=== PATIENT | male | born 1980 | race Caucasian/White ===

== ENCOUNTER 2019-07-15 00:52 | Emergency (ER) | payer SELFPAY ==
--- NOTE | 2019-07-15 01:00 | ED_ITS ---
HPI - Abdominal Pain General: Chief Complaint: Abdominal Pain Stated Complaint: abd pain Time Seen by Provider: 07/15/19 01:00 History of Present Illness: HPI narrative: Mr. Pascal is a nice 39-year-old male who comes in complaining of right upper quadrant abdominal pain. The pain is been present for 2 days. The first day was intermittent the second day it is been constant. He has had associated nausea but no vomiting. He denies any constipation or diarrhea. Denies any fevers or chills. He denies any urinary frequency urgency or dysuria. Eating or drinking seems to make the pain worse and only rest makes it subside slowly. Patient denies having anything in the past and is not tried anything at home for this pain. Associated Symptoms: Reports nausea; Denies chills, coffee ground emesis, constipation, GI cramping, diarrhea, dysuria, fever(s), hematochezia, hematuria, hematemesis, melena, syncope and vomiting Review of Systems General: Reports: other (negative unless marked) Const: Denies: fever, chills, body aches, fatigue, malaise or diaphoresis Eyes: Denies: change in vision or blurry vision ENMT: Denies: throat pain, painful swallowing, hoarseness, ear pain, ear discharge, Change in hearing or nasal discharge Card: Denies: chest pain, palpitations, irregular heart rhythm, syncope, pre- syncope, shortness of breath on exertion or shortness of breath when lying down Resp: Denies: shortness of breath, productive cough, non-productive cough, wheezing, coughing up blood or chest congestion GI: Reports: abdominal pain and nausea; Denies: vomiting, vomiting blood, coffee grounds in vomit, diarrhea, constipation, cramping, blood in stool or black tarry stool : Denies: flank pain, difficulty urinating, painful urination, urinary frequency, urinary urgency, decreased urine ouput, urinary incontinence or blood in urine Musc: Denies: neck pain, back pain, extremity pain, extremity swelling, joint pain, joint swelling, joint warmth or joint stiffness Skin/Breast: Denies: rash, skin tenderness or yellow skin Neuro: Denies: headache, numbness in extremities, weakness in extremities, changes in sensation, lack of coordination, difficulty walking, dizziness, vertigo or confusion Endo: Denies: excessive thirst, tired all the time, cold intolerance, excessive sweating, flushing or hot flashes Justus/Lymph: Denies: easy bruising, easy bleeding, petechiae or enlarged lymph nodes All/Imm: Denies: hives, throat swelling, tongue swelling, facial swelling or acute wheezing PFSH ED PFSH: Medical History No pertinent past medical history Surgical History H/O eye surgery Social History Smoking and tobacco status: current every day smoker Course Vital Signs: Vital signs: Vital Signs Temperature 96.8 F L 07/15/19 01:04 Pulse Rate 90 07/15/19 01:04 Respiratory Rate 20 H 07/15/19 01:04 Blood Pressure 138/96 07/15/19 01:04 Pulse Oximetry 96 07/15/19 01:04 MDM - Abdominal Pain MDM Narrative: Medical decision making narrative: Raymon is a nice 39-year-old male comes in for right upper quadrant pain for 2 days. First day was intermittent today is been almost constant. His gallbladder shows it is contracted on ultrasound but no evidence of gallstones and a normal biliary tree. CT scan shows a normal appendix with no mention of abnormalities of the gallbladder or liver. It does incidentally show a left herniated disc. I reviewed the case in full with Dr. Echavarria and he states the patient can follow-up with him and have an outpatient HIDA scan ordered to test for gallblad ana m dysfunction. I see no sign of acute cholecystitis as the patient is afebrile, a normal liver profile and only a minimally elevated white count with no left shift. The patient denies any chest pain or shortness of breath. In regards to his disc herniation he is completely asymptomatic and I did discuss this in full with the radiologist who says that he sees calcifications present so he thinks this is been there for quite some time. Patient agrees to return here in 12 hours if he still having pain or sooner if worse as he understands developing appendicitis is still could be a cause but at this time he is feeling much better and is ready to go home. On repeat exam there is no sign of peritonitis and he is greatly improved. Lab Data: Attestation: I reviewed the patient's lab results. Labs: Lab Results 07/15/19 07/15/19 07/15/19 Range/Units 01:15 01:15 02:19 WBC 10.8 H (4.0-10.0) 10^3/ uL RBC 5.03 (4.1-5.3) 10^6/u L Hgb 15.1 (11.7-16.6) g/dL Hct 47.0 (42.0-52.0) % MCV 93.4 (80-94) fL MCH 30.0 (28.0-34.0) pg MCHC 32.1 (30.0-36.0) g/dL RDW 13.5 (12.1-15.1) % Plt Count 315 (130-400) 10^3/c mm MPV 9.9 (7.4-10.4) fL Neut % (Auto) 60.9 % Lymph % (Auto) 25.1 % [place] % (Auto) 9.4 % Eos % (Auto) 3.1 % Baso % (Auto) 1.2 % Neut # (Auto) 6.6 (1.8-7.7) 10^3/u L Lymph # (Auto) 2.7 (0.8-4.8) 10^3/u L [place] # (Auto) 1.0 H (0.2-0.9) 10^3/u L Eos # (Auto) 0.3 (0.0-0.8) 10^3/u L Baso # (Auto) 0.1 (0.0-0.1) 10^3/u L Nucleated RBC % (a uto) 0 % Nucleated RBCs # 0.0 /100WBC Sodium 138 (136-145) mmol/L Potassium 4.0 (3.5-5.1) mmol/L Chloride 102 (98-107) mmol/L Carbon Dioxide 26 (22-29) mmol/L Anion Gap 14.0 (5-19) BUN 11 (6-20) mg/dL Creatinine 0.7 (0.7-1.2) mg/dL GFR Calculation 126.2 (90-130) mL/min Glucose 148 H (65-115) mg/dL Calculated Osmolal ity 285 (285-295) mOsm/k g Calcium 8.8 (8.5-10.5) mg/dL Total Bilirubin 0.2 (0.15-1.2) mg/dL AST 26 (0-40) U/L ALT 39 (0-41) U/L Alkaline Phosphata se 91 (40-130) IU/L Total Protein 7.1 (6.6-8.7) g/dL Albumin 4.1 (3.5-5.2) g/dL Globulin 3.0 (1.3-4.6) g/dL Lipase 20 (13-60) U/L Urine Color Yellow (Yellow) Urine Appearance Clear (CLEAR) Urine pH 5 (5-7) Ur Specific Gravit y 1.025 (1.005-1.030) Urine Protein Neg (Negative) Urine Glucose (UA) Norm (Normal) Urine Ketones Negative (Negative) Urine Blood Neg (Negative) Urine Nitrate Negative (Negative) Urine Bilirubin Neg (NEGATIVE) Urine Urobilinogen Norm (Negative) mg/dL Ur Leukocyte Nicolasa ase Negative (Negative) Urine RBC Rare (0-2) /hpf Urine WBC 0-4 H (0-5) /hpf Ur Squamous Epith Cells Rare (0-5) Urine Bacteria Trace (NONE) Imaging Data ^: US: Radiologist's impression: Ultrasound abdomen, Tech interpretation -gallbladder contracted. Wall at 0.5 cm. Fatty liver. All other findings unremarkable. CT Abd/Pel: Radiologist's impression: [place] [address] CT Scan Report Signed Patient: Raymon Pascal Unit #: [id number] : 1980 Age/Sex: 39 / M ADM Date: 07/15/19 Loc: ER Room/Bed: Attending Dr: Ordering Provider/Ordering MD: Ruba Hilton DO Date of Service: 07/15/19 Procedure(s): CT abdomen pelvis w con* [id number] Accession Number(s): [id number] Report Number: [id number] PROCEDURE INFORMATION: Exam: CT Abdomen And Pelvis With Contrast Exam date and time: 07/15/2019 2:30 AM Age: 39 years old Clinical indication: Abdominal pain; Generalized TECHNIQUE: Imaging protocol: Computed tomography of the abdomen and pelvis with intravenous contrast. Radiation optimization: All CT scans at this facility use at least one of these dose optimization techniques: automated exposure control; mA and/or kV adjustment per patient size (includes targeted exams where dose is matched to clinical indication); or iterative reconstruction. Contrast material: OMNI 300; Contrast volume: 95 ml; Contrast route: 20G; COMPARISON: No relevant prior studies available. RADIATION DOSE METRICS: Total DLP: 2002.91 mGy-cm FINDINGS: Mild patchy atelectasis at bilateral lung bases. The liver, gallbladder, spleen, pancreas, adrenal glands, and kidneys are unremarkable. A normal appearing appendix is seen in the right lower quadrant. No evidence of bowel obstruction. Diverticulosis of the sigmoid colon without evidence of diverticulitis. No free intraperitoneal air or fluid is seen. The bladder is unremarkable. Enlarged left inguinal lymph node. The abdominal aorta is non-aneurysmal. Large left paracentral posterior disk protrusion at L4-L5 with associated moderate spinal canal stenosis. CT/CT abdomen pelvis w con* [id number] IMPRESSION: 1. Large left paracentral posterior disk protrusion at L4-L5 with associated moderate spinal canal stenosis. Radiation Dose CTDIVOL = (mGy): DLP = 2002.91 (mGy-cm) Dictated By: Kelvin Ruiz MD Signed By: Kelvin Ruiz MD Signed Date/Time: 07/15/19322 DD/ 0 Discharge Plan Discharge Patient Disposition: Home, Self-Care Clinical Impression: Herniated intervertebral disc of lumbar spine Abdominal pain Qualifiers: Abdominal location: right upper quadrant Qualified Code(s): R10.11 - Right upper quadrant pain Condition: Stable Prescriptions: New Zofran 4 mg tablet 4 mg PO Q6H PRN (Reason: nausea and vomiting) Qty: 20 RF: 0 Discharge Orders: Discharge Order (Routine); Ordered 07/15/19 Ordered By: Ruba Hilton Referrals: Jarrell Echavarria MD [Physician] - 1-3 days Milo Echevarria MD [Physician] - 1-3 days Iva Thompson FNP [Primary Care Provider] - 1-3 days Discharge Diet: Advance as tolerated and Clear Liquid Discharge Activity: Increase activity as tolerated Patient Instructions: Abdominal Pain (ED) Activity Restrictions/Additional Instructions: Please return to the ER immediately for any of the signs or symptoms listed on your discharge instruction sheets, worsening/changing of your symptoms, you are not getting better as quickly as expected, or for ANY other cause or concerns. Return to the ER for return of your pain, fever, vomiting, you develop pain in your back or pain going down your legs, loss of bowel or bladder control, numbness in your groin, or for any other cause for concern. Be certain to follow-up with Dr. Echavarria for possible outpatient work-up of your gallbladder. If for any reason you have abdominal pain that lasts for more than 12 hours return here for a recheck to rule out appendicitis. Follow-up with your doctor and with Dr. Echevarria for further evaluation of your back. Stand Alone Forms: Work/School Release Coding Level of Care Code ED Supervisor [employer] for [employer]
[2019-07-15 01:04] VITALS: BP 138/96; PULSE 90; RESP 20; TEMP 36; O2SAT 96; BMI 38.7
--- NOTE | 2019-07-15 01:09 | US_ITS ---
WS: [id number] ABDOMINAL ULTRASOUND REASON FOR EXAM: Abdominal Pain TECHNIQUE: Grayscale and Doppler ultrasound examination of the abdomen. FINDINGS: Pancreas: Within normal limits. Abdominal aorta and IVC: Within normal limits. Liver: Liver measures 13.6 cm in length. Fatty infiltration. Hepatopedal circulation and portal syste m. Gallbladder: Gallbladder wall thickness measures 0.5 cm. The gallbladder contracted thickened wall. Left kidney: Left kidney measures 11.1 cm x 6.0 cm x 6.1 cm. No hydronephrosis or stones. Right kidney: Right kidney measures 13.5 cm x 7.1 cm x 6.1 cm. No hydronephrosis or stones. Spleen: Spleen measures 10.2 cm US/US abdomen complete* [id number] IMPRESSION: Contracted thickened wall gallbladder Fatty infiltration of the liver.
[2019-07-15] MEDS: sodium chloride 0.9% 1,000 ML 999 ML IV (01:12)
[2019-07-15] MEDS: ondansetron 2 mg/ML SDV 2 mL 4 MG IVP (01:15)
[2019-07-15] MEDS: morphine 4 mg/mL SDV 1 mL IVP ×2 (01:15→03:23)
[2019-07-15 01:19] LABS: Basophils # 0.1 10^3/uL (0.0-0.1); Basophils % 1.2 %; Eosinophils # 0.3 10^3/uL (0.0-0.8); Eosinophils % 3.1 %; Hemoglobin 15.1 g/dL (11.7-16.6); Lymphocytes # 2.7 10^3/uL (0.8-4.8); Lymphocytes % 25.1 %; Mean Corpuscular HGB Conc 32.1 g/dL (30.0-36.0); Mean Corpuscular Volume 93.4 fL (80-94); Mean Platelet Volume 9.9 fL (7.4-10.4); Monocytes % 9.4 %; Neutrophils # 6.6 10^3/uL (1.8-7.7); Neutrophils % 60.9 %; Nucleated Red Blood Cells % 0 %; Platelet Count 315 10^3/cmm (130-400); Red Blood Count 5.03 10^6/uL (4.1-5.3); Red Cell Distribution Width 13.5 % (12.1-15.1); White Blood Count 10.8 10^3/uL (4.0-10.0)
[2019-07-15 01:34] LABS: Alanine Aminotransferase 39 U/L (0-41); Albumin Level 4.1 g/dL (3.5-5.2); Alkaline Phosphatase 91 IU/L (40-130); Aspartate Amino Transferase 26 U/L (0-40); Blood Urea Nitrogen 11 mg/dL (6-20); Calcium 8.8 mg/dL (8.5-10.5); Carbon Dioxide 26 mmol/L (22-29); Chloride 102 mmol/L (98-107); Glomerular Filtration Rate 126.2 mL/min (90-130); Glucose 148 mg/dL (65-115); Lipase 20 U/L (13-60); Osmolality Calculated 285 mOsm/kg (285-295); Sodium 138 mmol/L (136-145); Total Bilirubin 0.2 mg/dL (0.15-1.2); Total Protein 7.1 g/dL (6.6-8.7)
--- NOTE | 2019-07-15 02:21 | CTR_ITS ---
PROCEDURE INFORMATION: Exam: CT Abdomen And Pelvis With Contrast Exam date and time: 07/15/2019 2:30 AM Age: 39 years old Clinical indication: Abdominal pain; Generalized TECHNIQUE: Imaging protocol: Computed tomography of the abdomen and pelvis with intravenous contrast. Radiation optimization: All CT scans at this facility use at least one of these dose optimization techniques: automated exposure control; mA and/or kV adjustment per patient size (includes targeted exams where dose is matched to clinical indication); or iterative reconstruction. Contrast material: OMNI 300; Contrast volume: 95 ml; Contrast route: 20G; COMPARISON: No relevant prior studies available. RADIATION DOSE METRICS: Total DLP: 2002.91 mGy-cm FINDINGS: Mild patchy atelectasis at bilateral lung bases. The liver, gallbladder, spleen, pancreas, adrenal glands, and kidneys are unremarkable. A normal appearing appendix is seen in the right lower quadrant. No evidence of bowel obstruction. Diverticulosis of the sigmoid colon without evidence of diverticulitis. No free intraperitoneal air or fluid is seen. The bladder is unremarkable. Enlarged left inguinal lymph node. The abdominal aorta is non-aneurysmal. Large left paracentral posterior disk protrusion at L4-L5 with associated moderate spinal canal stenosis. CT/CT abdomen pelvis w con* [id number] IMPRESSION: 1. Large left paracentral posterior disk protrusion at L4-L5 with associated moderate spinal canal stenosis. Radiation Dose CTDIVOL = (mGy): DLP = 2002.91 (mGy-cm)
[2019-07-15] MEDS: iohexol 300 mg/mL 100 mL Btl IV (02:42)
[2019-07-15 03:17] LABS: Specific Gravity, Urine 1.025 (1.005-1.030); Urine Appearance Clear (CLEAR); Urine Color Yellow (Yellow); pH Urine 5 (5-7)
[2019-07-15 03:18] LABS: Bacteria Urine TRACE; Bilirubin Urine Neg (NEGATIVE); Blood Urine Neg (Negative); Glucose Urine UA Norm (Normal); Ketones Urine Negative (Negative); Leukocyte Esterase Urine Negative (Negative); Nitrate Urine Negative (Negative); Protein Urine Neg (Negative); RBC Urine RARE /hpf (0-2); Squamous Epithelial Cell Urine RARE (0-5); Urobilinogen Urine Norm (Negative); WBC Urine 0-4 /hpf (0-5)
[2019-07-15] MEDS: sodium chloride 0.9% 1,000 ML 100 ML IV (03:24)
--- NOTE | 2019-07-16 09:48 | DCPLANNER ---
entry level assistant manager had message to schedule a follow up appointment for patient with Dr. Echevarria and Dr. Echavarria. entry level assistant manager called [facility], spoke with Johny. entry level assistant manager gave clinic patients information to clinic, was told that patients information would be printed and reviewed. Clinic will call patient with appointment information for both appointments.
--- NOTE | 2019-07-17 14:53 | DCPLANNER ---
Patient has a follow up appointment scheduled for Sunday, July 28, [address] at 8:[address] Echevarria. Clinic will call patient with appointment information.
== END 2019-07-15 04:11 | disposition home or self-care (01) ==
PROVIDERS: Emergency Provider Emergency Medicine; PCP Nurse Practitioner
DX: R10.11 Right upper quadrant pain (principal); M51.26 Other intervertebral disc displacement, lumbar region; F17.210 Nicotine dependence, cigarettes, uncomplicated
CPT/HCPCS: 12345; 74177; 76700; 80053; 81001; 83690; 85025; 96361; 96374; 96375; 96376; 99282; 99284; A9270; J2270; J2405; J7030; Q9967

== ENCOUNTER 2019-07-25 16:49 | Emergency (ER) | payer SELFPAY ==
[2019-07-25 16:52] VITALS: BP 133/75; PULSE 98; RESP 17; TEMP 36.7; O2SAT 96; BMI 38.8
[2019-07-25 17:01] VITALS: BP 126/70; PULSE 95; RESP 20; O2SAT 98
--- NOTE | 2019-07-25 17:03 | XRR_ITS ---
PROCEDURE INFORMATION: Exam: XR Chest, 1 View Exam date and time: 07/25/2019 5:04 PM Age: 39 years old Clinical indication: Cough and dyspnea; Patient HX: Syncopal episode; Additional info: Dyspnea/cough TECHNIQUE: Imaging protocol: XR of the chest Views: 1 view. COMPARISON: No relevant prior studies available. FINDINGS: Lungs: Unremarkable. No consolidation. Pleural space: Unremarkable. No pleural effusion. No pneumothorax. Heart/Mediastinum: Unremarkable. No cardiomegaly. Bones/joints: Unremarkable. XR/XR chest 1V portable [id number] IMPRESSION: No acute findings.
--- NOTE | 2019-07-25 17:03 | ECG_ITS ---
Measurements Intervals [place] Rate: 88 P: 54 [place]: 164 QRS: 52 QRSD: 89 T: 57 QT: 335 QTc: 406 SINUS RHYTHM NONSPECIFIC T-WAVE ABNORMALITY No previous ECG available for comparison Electronically Signed On 07-26-2019 9:36:28 CDT by Brigitte Grissom M.D. [email or web address]
--- NOTE | 2019-07-25 17:11 | ED_ITS ---
Documented by User: Brandt Garsia DO 07/29/19 06:46 HPI - Syncope General: Chief Complaint: Syncope Stated Complaint: SYNCOPE Time Seen by Provider: 07/25/19 16:57 History of Present Illness: HPI narrative: 39-year-old male comes in complaining of a syncopal episode he was at home stood up and began walking and passed out he was only out for a very brief period of time it was witnessed by his girlfriend there is no reported seizure-like activity he denies striking his head or having any chest pain denies any shortness of breath fever sweats or chills or other recent illness. He has not had episodes like this in the past he has not been taking any prescription medications and no recent use of zxod-kck-murcezl medications. There is no loss of bowel or bladder control and did not bite his tongue he does not have a headache does not have any extremity pain cannot really identify having hit or injured anything when he fell. MD complaint: loss of consciousness and collapsed Onset (ago): minute(s) -: second(s) Prodromal symptoms: lightheaded Witnessed: Yes - by Bystander (Girlfriend) Context: standing up Injuries sustained associated with event: none Associated symptoms: Reports no associated symptoms; Deny abdominal pain, chest pain, fever(s) or nausea Treatments prior to arrival: none Review of Systems Const: Denies: fever(s), chills, body aches, change in appetite, fatigue or malaise ENMT: Denies: throat pain, ear or mastoid pain, nasal discharge or nasal congestion Card: Denies: chest pain, edema, dyspnea on exertion or orthopnea Resp: Denies: dyspnea, productive cough or non-productive cough GI: Denies: abdominal pain, nausea, vomiting, hematemesis, coffee ground emesis, diarrhea, constipation, bloating, hematochezia or melena : Denies: flank pain, dysuria, urinary frequency or urinary urgency Skin/Breast: Denies: rash or pruritus [facility] ED PFSH: Medical History (Updated 07/25/19 @ 19:04 by Ruba Hilton) No pertinent past medical history Surgical History H/O eye surgery Social History Smoking and tobacco status: current every day smoker Physical Exam Const: COMMON NORMALS: no acute distress GENERAL APPEARANCE: cooperative and comfortable ORIENTATION/CONSCIOUSNESS: Yes awake, Yes oriented to person, Yes oriented to place and Yes oriented to time HENMT: COMMON NORMALS: normocephalic, atraumatic, hearing grossly normal bilaterally, external ears normal, EAC's normal, TM's normal bilaterally, Normal nasal mucous membranes and turbinates present, moist oral mucous membranes and oropharynx normal HEAD & SCALP: normocephalic and atraumatic NOSE: Normal nasal mucous membranes and turbinates present EXTERNAL EAR: Yes external ears normal EXTERNAL AUDITORY CANAL: EAC's normal TYMPANIC MEMBRANE: TM's normal bilaterally Eye: COMMON NORMALS: Equal, round and reactive pupils present, EOMs intact bilaterally, conjunctivae normal and no scleral icterus CONJUNCTIVA: Yes conjunctivae normal PUPIL: Yes Equal, round and reactive pupils present Neck/C-Spine: COMMON NORMALS: full ROM, no lymphadenopathy, supple and no JVD Lymph: LYMPHATIC: no lymphadenopathy noted and no lymphedema noted Resp: COMMON NORMALS: normal respiratory effort, No retractions, No use of accessory muscles and clear to auscultation bilaterally AUSCULTATION: clear to auscultation bilaterally Cardio: COMMON NORMALS: no JVD, regular rate, regular rhythm and No murmurs present (Cardio) RATE: regular rate RHYTHM: regular rhythm GI: COMMON NORMALS: Soft to palpation and No hepatosplenomegaly present AUSCULTATION: Yes normoactive bowel sounds PALPATION: Yes Soft to palpation, No Tenderness to palpation present (GI), No Guarding due to palpation present (GI) and Yes No hepatosplenomegaly present Extremity: COMMON NORMALS: normal to inspection, capillary refill normal, no clubbing, cyanosis or edema, no calf tenderness and no pedal edema Neuro: SENSORIUM/ORIENTATION: Yes oriented to person, Yes oriented to place and Yes oriented to time Skin: COMMON NORMALS: no rashes or lesions noted GENERAL SKIN EXAM: no rashes or lesions noted Course Vital Signs: Vital signs: Vital Signs Temperature 98.0 F 07/25/19 16:52 Pulse Rate 78 07/25/19 19:25 Respiratory Rate 18 07/25/19 19:25 Blood Pressure 140/70 07/25/19 19:25 Pulse Oximetry 98 07/25/19 19:25 MDM - Syncope Lab Data: Labs: Lab Results 07/25/19 07/25/19 07/25/19 Range/Units 16:40 16:40 16:40 WBC 9.7 (4.0-10.0) 10^3/ uL RBC 5.22 (4.1-5.3) 10^6/u L Hgb 15.8 (11.7-16.6) g/dL Hct 48.4 (42.0-52.0) % MCV 92.7 (80-94) fL MCH 30.3 (28.0-34.0) pg MCHC 32.6 (30.0-36.0) g/dL RDW 13.4 (12.1-15.1) % Plt Count 305 (130-400) 10^3/c mm MPV 9.9 (7.4-10.4) fL Neut % (Auto) 59.3 % Lymph % (Auto) 24.6 % Rice % (Auto) 12.3 % Eos % (Auto) 2.4 % Baso % (Auto) 1.1 % Neut # (Auto) 5.7 (1.8-7.7) 10^3/u L Lymph # (Auto) 2.4 (0.8-4.8) 10^3/u L Rice # (Auto) 1.2 H (0.2-0.9) 10^3/u L Eos # (Auto) 0.2 (0.0-0.8) 10^3/u L Baso # (Auto) 0.1 (0.0-0.1) 10^3/u L Nucleated RBC % (a uto) 0 % Nucleated RBCs # 0.0 /100WBC Sodium 132 L (136-145) mmol/L Potassium 3.9 (3.5-5.1) mmol/L Chloride 95 L (98-107) mmol/L Carbon Dioxide 27 (22-29) mmol/L Anion Gap 13.9 (5-19) BUN 10 (6-20) mg/dL Creatinine 0.6 L (0.7-1.2) mg/dL GFR Calculation 150.8 H (90-130) mL/min Glucose 90 (65-115) mg/dL Calculated Osmolal ity 270 L (285-295) mOsm/k g Calcium 9.9 (8.5-10.5) mg/dL Total Bilirubin 0.3 (0.15-1.2) mg/dL AST 25 (0-40) U/L ALT 36 (0-41) U/L Alkaline Phosphata se 85 (40-130) IU/L Troponin T Baselin e 11 (0-15) ng/mL Total Protein 7.5 (6.6-8.7) g/dL Albumin 4.5 (3.5-5.2) g/dL Globulin 3.0 (1.3-4.6) g/dL Discharge Plan Discharge Patient Disposition: Home, Self-Care Clinical Impression: Syncope due to orthostatic hypotension, Vasovagal syncope Condition: Stable Prescriptions: No Action ondansetron HCl [Zofran] 4 mg tablet 4 mg PO Q6H PRN (Reason: nausea and vomiting) Qty: 20 RF: 0 Tylenol 1 - 2 tab PO PRN RF: 0 Discharge Orders: Discharge Order (Routine); Ordered 07/25/19 Ordered By: Ruba Hilton Referrals: Iva Thompson FNP [Primary Care Provider] - 1-3 days Discharge Diet: Advance as tolerated Discharge Activity: Increase activity as tolerated Patient Instructions: Syncope (ED) Activity Restrictions/Additional Instructions: Please return to the ER immediately for any of the signs or symptoms listed on your discharge instruction sheets, worsening/changing of your symptoms, you are not getting better as quickly as expected, or for ANY other cause or concerns. Be certain to follow-up with your doctor for recheck. If you develop chest pain, shortness of breath, dizziness, you pass out again or your nearly pass out again please return to the ER immediately for recheck. Discharge Date/Time: 07/25/19 19:29 Coding Level of Care Code ED [employer] Salesperson for Chg Fwd Exam Comprehensive Documented by User: Ruba Hilton 07/25/19 23:09 HPI - Syncope General: Chief Complaint: Syncope Stated Complaint: SYNCOPE Time Seen by Provider: 07/25/19 16:57 [facility] ED [facility]: Medical History (Updated 07/25/19 @ 19:04 by Ruba Hilton) No pertinent past medical history Surgical History H/O eye surgery Social History Smoking and tobacco status: current every day smoker Course ED course: [facility] -care turned over to me at change of shift from Dr. Garsia. Please see his note for his history, physical exam and medical decision-making notes. Patient states that he had gotten up and walked to the kitchen and was coughing. He was cocked pink somewhat forcefully and felt dizzy and lightheaded and then found himself on the floor. He denies any preceding chest pain, shortness of breath, leg pain or swelling, headache, and he denies any injuries from falling to the floor. He is not orthostatic here and he has been up and ambulatory without any difficulty. He denies any history of neurologic or cardiac disease. His EKG is normal and his labs are normal to this point. I am going to add at least one troponin and at this time I am awaiting his head CT. Patient is feeling better and would like to go home. On my exam the patient has a regular heart rhythm without murmur, gallop, rub, click or thrill. His lungs are clear to auscultation without wheeze rub or rhonchi, his abdomen was soft and nontender in all 4 quadrants. Musculoskeletal exam is negative with no cyanosis clubbing or edema and a negative Homans sign with no calf tenderness. Neurologically he is alert and oriented x4 with no focal deficits. Vital Signs: Vital signs: Vital Signs Temperature 98.0 F 07/25/19 16:52 Pulse Rate 78 07/25/19 19:25 Respiratory Rate 18 07/25/19 19:25 Blood Pressure 140/70 07/25/19 19:25 Pulse Oximetry 98 07/25/19 19:25 MDM - Syncope MDM Narrative: Medical decision making narrative: Discharge -the patient's history sounds like a combination of orthostatic hypotension and cough induced syncope. He has no chest pain or risk factors for DVT/PE. His cardiac work-up is negative and with no chest pain, no shortness of breath and stable vital signs here I do not think a CTA PE is necessary. Following the Gibson syncope rule along with [place] syncope risk score, the patient is a low risk for a cardiac cause for her symptoms. The patient declines any further evaluation and care and would like to be discharged. Lab Data: Attestation: I reviewed the patient's lab results. Labs: Lab Results 07/25/19 07/25/19 07/25/19 Range/Units 16:40 16:40 16:40 WBC 9.7 (4.0-10.0) 10^3/ uL RBC 5.22 (4.1-5.3) 10^6/u L Hgb 15.8 (11.7-16.6) g/dL Hct 48.4 (42.0-52.0) % MCV 92.7 (80-94) fL MCH 30.3 (28.0-34.0) pg MCHC 32.6 (30.0-36.0) g/dL RDW 13.4 (12.1-15.1) % Plt Count 305 (130-400) 10^3/c mm MPV 9.9 (7.4-10.4) fL Neut % (Auto) 59.3 % Lymph % (Auto) 24.6 % Rice % (Auto) 12.3 % Eos % (Auto) 2.4 % Baso % (Auto) 1.1 % Neut # (Auto) 5.7 (1.8-7.7) 10^3/u L Lymph # (Auto) 2.4 (0.8-4.8) 10^3/u L Rice # (Auto) 1.2 H (0.2-0.9) 10^3/u L Eos # (Auto) 0.2 (0.0-0.8) 10^3/u L Baso # (Auto) 0.1 (0.0-0.1) 10^3/u L Nucleated RBC % (a uto) 0 % Nucleated RBCs # 0.0 /100WBC Sodium 132 L (136-145) mmol/L Potassium 3.9 (3.5-5.1) mmol/L Chloride 95 L (98-107) mmol/L Carbon Dioxide 27 (22-29) mmol/L Anion Gap 13.9 (5-19) BUN 10 (6-20) mg/dL Creatinine 0.6 L (0.7-1.2) mg/dL GFR Calculation 150.8 H (90-130) mL/min Glucose 90 (65-115) mg/dL Calculated Osmolal ity 270 L (285-295) mOsm/k g Calcium 9.9 (8.5-10.5) mg/dL Total Bilirubin 0.3 (0.15-1.2) mg/dL AST 25 (0-40) U/L ALT 36 (0-41) U/L Alkaline Phosphata se 85 (40-130) IU/L Troponin T Baselin e 11 (0-15) ng/mL Total Protein 7.5 (6.6-8.7) g/dL Albumin 4.5 (3.5-5.2) g/dL Globulin 3.0 (1.3-4.6) g/dL EKG Data^: EKG 1: Attestation: I personally reviewed and interpreted this EKG as follows: EKG interpretation date: 07/25/19 EKG interpretation time: 17:16 Interpretation: Normal sinus rhythm at 88 beats a minute, normal axis, no acute ST or T wave changes. Normal intervals, no blocks. No previous for comparison. Discharge Plan Discharge Patient Disposition: Home, Self-Care Clinical Impression: Syncope due to orthostatic hypotension, Vasovagal syncope Condition: Stable Prescriptions: No Action ondansetron HCl [Zofran] 4 mg tablet 4 mg PO Q6H PRN (Reason: nausea and vomiting) Qty: 20 RF: 0 Tylenol 1 - 2 tab PO PRN RF: 0 Discharge Orders: Discharge Order (Routine); Ordered 07/25/19 Ordered By: Ruba Hilton Referrals: Iva Thompson FNP [Primary Care Provider] - 1-3 days Discharge Diet: Advance as tolerated Discharge Activity: Increase activity as tolerated Patient Instructions: Syncope (ED) Activity Restrictions/Additional Instructions: Please return to the ER immediately for any of the signs or symptoms listed on your discharge instruction sheets, worsening/changing of your symptoms, you are not getting better as quickly as expected, or for ANY other cause or concerns. Be certain to follow-up with your doctor for recheck. If you develop chest kaedn n, shortness of breath, dizziness, you pass out again or your nearly pass out again please return to the ER immediately for recheck. Discharge Date/Time: 07/25/19 19:29 Coding Level of Care Code ED [employer] Salesperson for Chg Fwd Exam Comprehensive
[2019-07-25 17:18] VITALS: BP 139/87; BP 156/102; BP 175/104; PULSE 101; PULSE 103; PULSE 95
[2019-07-25 17:20] LABS: Basophils # 0.1 10^3/uL (0.0-0.1); Basophils % 1.1 %; Eosinophils # 0.2 10^3/uL (0.0-0.8); Eosinophils % 2.4 %; Hematocrit 48.4 % (42.0-52.0); Hemoglobin 15.8 g/dL (11.7-16.6); Lymphocytes # 2.4 10^3/uL (0.8-4.8); Lymphocytes % 24.6 %; Mean Corpuscular HGB Conc 32.6 g/dL (30.0-36.0); Mean Corpuscular Hemoglobin 30.3 pg (28.0-34.0); Mean Corpuscular Volume 92.7 fL (80-94); Mean Platelet Volume 9.9 fL (7.4-10.4); Monocytes # 1.2 10^3/uL (0.2-0.9); Monocytes % 12.3 %; Neutrophils # 5.7 10^3/uL (1.8-7.7); Neutrophils % 59.3 %; Nucleated Red Blood Cells % 0 %; Platelet Count 305 10^3/cmm (130-400); Red Blood Count 5.22 10^6/uL (4.1-5.3); Red Cell Distribution Width 13.4 % (12.1-15.1); White Blood Count 9.7 10^3/uL (4.0-10.0)
[2019-07-25] MEDS: sodium chloride 0.9% 1,000 ML 999 ML IV (17:21)
[2019-07-25 17:33] LABS: Alanine Aminotransferase 36 U/L (0-41); Albumin Level 4.5 g/dL (3.5-5.2); Alkaline Phosphatase 85 IU/L (40-130); Anion Gap 13.9 (5-19); Aspartate Amino Transferase 25 U/L (0-40); Blood Urea Nitrogen 10 mg/dL (6-20); Calcium 9.9 mg/dL (8.5-10.5); Carbon Dioxide 27 mmol/L (22-29); Chloride 95 mmol/L (98-107); Glomerular Filtration Rate 150.8 mL/min (90-130); Glucose 90 mg/dL (65-115); Osmolality Calculated 270 mOsm/kg (285-295); Potassium 3.9 mmol/L (3.5-5.1); Sodium 132 mmol/L (136-145); Total Bilirubin 0.3 mg/dL (0.15-1.2); Total Protein 7.5 g/dL (6.6-8.7)
--- NOTE | 2019-07-25 17:35 | CTR_ITS ---
PROCEDURE INFORMATION: Exam: CT Head Without Contrast Exam date and time: 07/25/2019 5:36 PM Age: 39 years old Clinical indication: Syncope and collapse; Patient HX: Syncope episode; Additional info: Loc TECHNIQUE: Imaging protocol: Computed tomography of the head without contrast. Radiation optimization: All CT scans at this facility use at least one of these dose optimization techniques: automated exposure control; mA and/or kV adjustment per patient size (includes targeted exams where dose is matched to clinical indication); or iterative reconstruction. COMPARISON: No relevant prior studies available. RADIATION DOSE METRICS: Total DLP: 785.31 mGy-cm FINDINGS: Brain: Normal. No hemorrhage. Unremarkable white matter. No mass effect. Ventricles: Normal. No ventriculomegaly. Bones/joints: Unremarkable. No acute fracture. Sinuses: There is opacification of a portion of the right frontal sinus. Mastoid air cells: Visualized mastoid air cells are well aerated. Soft tissues: Unremarkable. CT/CT head wo con* [id number] IMPRESSION: No acute intracranial abnormality. Radiation Dose CTDIVOL = (mGy): DLP = 785.31 (mGy-cm)
[2019-07-25 18:54] LABS: Troponin(5th) Baseline 11 ng/mL (0-15)
[2019-07-25 19:25] VITALS: BP 140/70; PULSE 78; RESP 18; O2SAT 98
--- NOTE | 2019-07-29 15:04 | DCPLANNER ---
Appointments scheduled with [facility]/Labor clinic and Dr. Haque office has been cancelled.
== END 2019-07-25 19:29 | disposition home or self-care (01) ==
PROVIDERS: Family Medicine; Emergency Provider Emergency Medicine; PCP Nurse Practitioner
DX: R55 Syncope and collapse (principal); I95.1 Orthostatic hypotension; F17.210 Nicotine dependence, cigarettes, uncomplicated
CPT/HCPCS: 12345; 70450; 71045; 80053; 84484; 85025; 93005; 96360; 99283; 99284; J7030

== ENCOUNTER 2019-08-07 15:20 | Emergency (ER) | payer SELFPAY ==
[2019-08-07 15:37] VITALS: BP 150/79; PULSE 90; RESP 18; TEMP 36.8; O2SAT 96; BMI 39.1
[2019-08-07 15:58] LABS: Basophils # 0.1 10^3/uL (0.0-0.1); Basophils % 1.1 %; Eosinophils # 0.3 10^3/uL (0.0-0.8); Eosinophils % 2.5 %; Hematocrit 47.5 % (42.0-52.0); Hemoglobin 15.6 g/dL (11.7-16.6); Lymphocytes # 2.3 10^3/uL (0.8-4.8); Lymphocytes % 21.7 %; Mean Corpuscular HGB Conc 32.8 g/dL (30.0-36.0); Mean Corpuscular Hemoglobin 30.3 pg (28.0-34.0); Mean Corpuscular Volume 92.2 fL (80-94); Mean Platelet Volume 9.8 fL (7.4-10.4); Monocytes # 0.8 10^3/uL (0.2-0.9); Monocytes % 7.4 %; Neutrophils % 66.9 %; Nucleated Red Blood Cells % 0 %; Platelet Count 302 10^3/cmm (130-400); Red Blood Count 5.15 10^6/uL (4.1-5.3); Red Cell Distribution Width 13.5 % (12.1-15.1); White Blood Count 10.4 10^3/uL (4.0-10.0)
[2019-08-07 16:15] LABS: Alanine Aminotransferase 30 U/L (0-41); Albumin Level 4.4 g/dL (3.5-5.2); Alkaline Phosphatase 90 IU/L (40-130); Anion Gap 14.8 (5-19); Aspartate Amino Transferase 22 U/L (0-40); Blood Urea Nitrogen 10 mg/dL (6-20); Calcium 9.1 mg/dL (8.5-10.5); Carbon Dioxide 24 mmol/L (22-29); Chloride 100 mmol/L (98-107); Creatinine Clr Calc Pharmacy 200.7398; Globulin 2.9 g/dL (1.3-4.6); Glomerular Filtration Rate 150.8 mL/min (90-130); Glucose 149 mg/dL (65-115); Lipase 13 U/L (13-60); Osmolality Calculated 279 mOsm/kg (285-295); Potassium 3.8 mmol/L (3.5-5.1); Sodium 135 mmol/L (136-145); Total Bilirubin 0.3 mg/dL (0.15-1.2); Total Protein 7.3 g/dL (6.6-8.7)
--- NOTE | 2019-08-07 16:20 | XRR_ITS ---
PROCEDURE INFORMATION: Exam: XR Chest, 2 Views Exam date and time: 08/07/2019 4:30 PM Age: 39 years old Clinical indication: Patient HX: Upper abdomen pain and cough for 2 weeks TECHNIQUE: Imaging protocol: XR of the chest Views: 2 views. COMPARISON: CR XR chest 1V portable [id number] 07/25/2019 5:44 PM FINDINGS: Lungs: Unremarkable. No consolidation. Pleural space: Unremarkable. No pleural effusion. No pneumothorax. Heart/Mediastinum: Unremarkable. No cardiomegaly. Bones/joints: Unremarkable. No interval changes are seen compared to prior XR/XR chest 2V* [id number] IMPRESSION: No acute findings.
--- NOTE | 2019-08-07 16:25 | W.ED.ABDPA2 ---
HPI - Abdominal Pain General: Chief Complaint: Abdominal Pain Stated Complaint: abdominal pain, nausea Time Seen by Provider: 08/07/19 16:14 Source: patient Mode of arrival: ambulatory Limitations: no limitations History of Present Illness: HPI narrative: 89-year-old male has had epigastric and right upper quadrant pain over the last month. He has been seen here twice and had normal CT scan and ultrasound and states he has not followed up due to not having insurance. He states that pain is sharp in nature and rates it a 6 out of 10. He states he is also had a slight cough. Denies any fevers. MD elicited complaint: abdominal pain Onset (ago): day(s) Location: RUQ Severity: moderate Quality: stabbing Radiation: none Exacerbating factors: nothing Relieving factors: nothing Associated Symptoms: Denies chills, dysuria and fever(s) Review of Systems Const: Denies: fever(s), chills, body aches or change in appetite Eyes: Denies: blurry vision or eye discomfort ENMT: Denies: throat pain or dental pain Card: Denies: chest pain Resp: Reports: non-productive cough GI: Reports: abdominal pain : Denies: dysuria Musc: Denies: neck pain or back pain Skin/Breast: Denies: rash Neuro: Denies: headache(s) Psych: Denies: depression Justus/Lymph: Denies: easy bruising All/Imm: Denies: urticaria PFSH ED PFSH: Medical History No pertinent past medical history Surgical History H/O eye surgery Social History Smoking and tobacco status: current every day smoker Physical Exam Const: COMMON NORMALS: no acute distress, patient oriented x3 and healthy appearing HENMT: COMMON NORMALS: normocephalic and atraumatic HEAD & SCALP: normocephalic and atraumatic Eye: COMMON NORMALS: Equal, round and reactive pupils present and EOMs intact bilaterally PUPIL: Yes Equal, round and reactive pupils present Neck/C-Spine: COMMON NORMALS: full ROM and supple Chest: COMMONS NORMALS: normal inspection of the chest and normal palpation of entire chest wall Resp: COMMON NORMALS: normal respiratory effort, No retractions, No use of accessory muscles and clear to auscultation bilaterally AUSCULTATION: clear to auscultation bilaterally Cardio: COMMON NORMALS: regular rate, regular rhythm and No murmurs present (Cardio) RATE: regular rate RHYTHM: regular rhythm GI: COMMON NORMALS: Normal to inspection, nondistended, normoactive bowel sounds present, Soft to palpation and no masses PALPATION: Yes Soft to palpation and Yes Tenderness to palpation present (GI) Details: RUQ Extremity: COMMON NORMALS: normal to inspection and full ROM Neuro: COMMON NORMALS: patient oriented x3, moves all extremities and no focal motor deficits Psych: COMMON NORMALS: mental status grossly normal, Normal thought process present and cooperative THOUGHT PROCESS: Normal thought process present Skin: COMMON NORMALS: no rashes or lesions noted and no wounds GENERAL SKIN EXAM: no rashes or lesions noted Course Vital Signs: Vital signs: Vital Signs Temperature 98.2 F 08/07/19 15:37 Pulse Rate 85 08/07/19 16:41 Respiratory Rate 20 H 08/07/19 16:41 Blood Pressure 151/105 08/07/19 16:41 Pulse Oximetry 93 08/07/19 16:41 MDM - Abdominal Pain MDM Narrative: Medical decision making narrative: 39-year-old male presented here with abdominal pain that is improved. Ultrasound shows no signs of cholecystitis. Patient could have gastritis and will have him take Prilosec [id number]. Patient is to follow-up with surgery for EGD versus HIDA. Patient stable for discharge and return if worsening. Patient has no signs of acute surgical abdomen and lab work is normal. Lab Data: Labs: Lab Results 08/07/19 08/07/19 Range/Units 15:47 15:47 WBC 10.4 H (4.0-10.0) 10^3/ uL RBC 5.15 (4.1-5.3) 10^6/u L Hgb 15.6 (11.7-16.6) g/dL Hct 47.5 (42.0-52.0) % MCV 92.2 (80-94) fL MCH 30.3 (28.0-34.0) pg MCHC 32.8 (30.0-36.0) g/dL RDW 13.5 (12.1-15.1) % Plt Count 302 (130-400) 10^3/c mm MPV 9.8 (7.4-10.4) fL Neut % (Auto) 66.9 % Lymph % (Auto) 21.7 % [place] % (Auto) 7.4 % Eos % (Auto) 2.5 % Baso % (Auto) 1.1 % Neut # (Auto) 7.0 (1.8-7.7) 10^3/u L Lymph # (Auto) 2.3 (0.8-4.8) 10^3/u L [place] # (Auto) 0.8 (0.2-0.9) 10^3/u L Eos # (Auto) 0.3 (0.0-0.8) 10^3/u L Baso # (Auto) 0.1 (0.0-0.1) 10^3/u L Nucleated RBC % (a uto) 0 % Nucleated RBCs # 0.0 /100WBC Sodium 135 L (136-145) mmol/L Potassium 3.8 (3.5-5.1) mmol/L Chloride 100 (98-107) mmol/L Carbon Dioxide 24 (22-29) mmol/L Anion Gap 14.8 (5-19) BUN 10 (6-20) mg/dL Creatinine 0.6 L (0.7-1.2) mg/dL GFR Calculation 150.8 H (90-130) mL/min Glucose 149 H (65-115) mg/dL Calculated Osmolal ity 279 L (285-295) mOsm/k g Calcium 9.1 (8.5-10.5) mg/dL Total Bilirubin 0.3 (0.15-1.2) mg/dL AST 22 (0-40) U/L ALT 30 (0-41) U/L Alkaline Phosphata se 90 (40-130) IU/L Total Protein 7.3 (6.6-8.7) g/dL Albumin 4.4 (3.5-5.2) g/dL Globulin 2.9 (1.3-4.6) g/dL Lipase 13 (13-60) U/L Imaging Data ^: CXR: Radiologist's impression: Status: Finalized Reason: cough [address] [address] XRay Report Signed Patient: Raymon Pascal Unit #: [id number] : 1980 Age/Sex: 39 / M ADM Date: 08/07/19 Loc: ER Room/Bed: Attending Dr: Ordering Provider/Ordering MD: Terri Moya MD Date of Service: 08/07/19 Procedure(s): XR chest 2V* [id number] Accession Number(s): [id number] Report Number: [id number] PROCEDURE INFORMATION: Exam: XR Chest, 2 Views Exam date and time: 08/07/2019 4:30 PM Age: 39 years old Clinical indication: Patient HX: Upper abdomen pain and cough for 2 weeks TECHNIQUE: Imaging protocol: XR of the chest Views: 2 views. COMPARISON: CR XR chest 1V portable [id number] 07/25/2019 5:44 PM FINDINGS: Lungs: Unremarkable. No consolidation. Pleural space: Unremarkable. No pleural effusion. No pneumothorax. Heart/Mediastinum: Unremarkable. No cardiomegaly. Bones/joints: Unremarkable. No interval changes are seen compared to prior XR/XR chest 2V* [id number] IMPRESSION: No acute findings. US: Radiologist's impression: [place] [address] Ultrasound Report Signed Patient: Raymon Pascal Unit #: [id number] : 1980 Age/Sex: 39 / M ADM Date: 08/07/19 Loc: ER Room/Bed: Attending Dr: Ordering Provider/Ordering MD: Terri Moya MD Date of Service: 08/07/19 Procedure(s): US gall bladder [id number] Accession Number(s): [id number] Report Number: [id number] PROCEDURE INFORMATION: Exam: US Abdomen Limited, Right Upper Quadrant Exam date and time: 08/07/2019 5:03 PM Age: 39 years old Clinical indication: Abdominal pain; Additional info: Abd pain TECHNIQUE: Imaging protocol: Real-time ultrasound of the abdomen with image documentation. Examination was focused on the right upper quadrant. COMPARISON: US abdomen complete* [id number] 07/15/2019 2:57 AM FINDINGS: Liver: Diffuse increased echogenicity consistent with steatosis. There is a paddle megaly the liver span is 20 cm. No masses. Gallbladder: Normal. No gallstones. There is no gallbladder wall thickening. Common bile duct: Normal. No stones. No dilation. 2.7 mm Pancreas: Not visible due to bowel gas. Right kidney: Normal. No mass. No hydronephrosis. 11.8 cm x 6.2 cm x 5.5 cm US/US gall bladder [id number] IMPRESSION: 1. Hepatomegaly and hepatic steatosis. 2. Otherwise negative examination Discharge Plan Discharge Patient Disposition: Home, Self-Care Clinical Impression: Abdominal pain Qualifiers: Abdominal location: right upper quadrant Qualified Code(s): R10.11 - Right upper quadrant pain Condition: Stable Prescriptions: [place] 5-325 mg tablet 1 tab PO Q6H PRN (Reason: pain) Qty: 10 RF: 0 Zofran 4 mg tablet 4 mg PO QID PRN (Reason: nausea and vomiting) Qty: 14 RF: 0 No Action ondansetron HCl [Zofran] 4 mg tablet 4 mg PO Q6H PRN (Reason: nausea and vomiting) Qty: 20 RF: 0 Tylenol 1 - 2 tab PO PRN RF: 0 Discharge Orders: Discharge Order (Routine); Ordered 08/07/19 Ordered By: Terri Moya Referrals: Tuan Lopez MD [Physician] - 1-3 days Discharge Diet: Advance as tolerated Discharge Activity: Resume usual activity Patient Instructions: Abdominal Pain (ED) Coding Level of Care Code ED [employer]er Repairer for Chg Fwd Exam Comprehensive
--- NOTE | 2019-08-07 16:28 | USR_ITS ---
PROCEDURE INFORMATION: Exam: US Abdomen Limited, Right Upper Quadrant Exam date and time: 08/07/2019 5:03 PM Age: 39 years old Clinical indication: Abdominal pain; Additional info: Abd pain TECHNIQUE: Imaging protocol: Real-time ultrasound of the abdomen with image documentation. Examination was focused on the right upper quadrant. COMPARISON: US abdomen complete* [id number] 07/15/2019 2:57 AM FINDINGS: Liver: Diffuse increased echogenicity consistent with steatosis. There is a paddle megaly the liver span is 20 cm. No masses. Gallbladder: Normal. No gallstones. There is no gallbladder wall thickening. Common bile duct: Normal. No stones. No dilation. 2.7 mm Pancreas: Not visible due to bowel gas. Right kidney: Normal. No mass. No hydronephrosis. 11.8 cm x 6.2 cm x 5.5 cm US/US gall bladder [id number] IMPRESSION: 1. Hepatomegaly and hepatic steatosis. 2. Otherwise negative examination
[2019-08-07 16:41] VITALS: BP 151/105; PULSE 85; RESP 20; O2SAT 93
[2019-08-07] MEDS: morphine 4 mg/mL SDV 1 mL IVP (16:56)
[2019-08-07] MEDS: ondansetron 2 mg/ML SDV 2 mL 4 MG IVP (16:57)
[2019-08-07] MEDS: lidocaine 2% viscous 15 ML, aluminum-mag hydrox-simethicon 30 ML, sucralfate oral liq 1 GM PO (17:00)
[2019-08-07 18:04] VITALS: BP 140/87; PULSE 91; RESP 16; O2SAT 94
--- NOTE | 2019-08-11 11:15 | DCPLANNER ---
technology adoption manager had message to schedule a follow up appointment for patient with general surgery. technology adoption manager called [facility], spoke with Allison, gave clinic patients information. technology adoption manager was told that patients information would be printed and reviewed. Clinic will call patient with appointment information.
--- NOTE | 2019-08-12 07:50 | DCPLANNER ---
Patient has a follow up appointment scheduled for Sunday, August 18, 2019 at 1:[address] Lopez. Clinic will call patient with appointment information.
--- NOTE | 2019-09-04 13:50 | DCPLANNER ---
Patient had an appointment scheduled for 08.18.19 with [facility] clinic. Patient did attend the appointment.
== END 2019-08-07 18:09 | disposition home or self-care (01) ==
PROVIDERS: Emergency Provider Emergency Medicine
DX: R10.11 Right upper quadrant pain (principal); F17.210 Nicotine dependence, cigarettes, uncomplicated
CPT/HCPCS: 12345; 36415; 71046; 76705; 80053; 83690; 85025; 96374; 96375; 99282; 99283; J2270; J2405

== ENCOUNTER 2019-12-20 09:15 | Emergency (ER) | payer SELFPAY ==
[2019-12-20 09:19] VITALS: BP 174/89; PULSE 82; RESP 18; TEMP 36.7; O2SAT 97; BMI 41.6
--- NOTE | 2019-12-20 09:29 | XRR_ITS ---
PROCEDURE INFORMATION: Exam: XR Right Ribs with PA Chest, 3 Views Exam date and time: 12/20/2019 9:31 AM Age: 39 years old Clinical indication: Pain; Other: RT ribs; Additional info: Lower ruq pain with inspiration, ribs tender TECHNIQUE: Imaging protocol: XR Right ribs 3 views with PA chest. COMPARISON: CR XR chest 2V* [id number] 08/07/2019 4:33 PM FINDINGS: Lungs: There is mild linear atelectasis or fibrosis in the right base. No consolidation. Pleural space: Unremarkable. No pleural effusion. No pneumothorax. Heart/Mediastinum: Unremarkable. No cardiomegaly. Bones/joints: Unremarkable. XR/XR ribs RT mn 3V w CXR1V [id number] IMPRESSION: Mild linear atelectasis or fibrosis in the right lung base. Normal ribs.
[2019-12-20 09:30] VITALS: BP 158/94; PULSE 80; RESP 20; O2SAT 96
--- NOTE | 2019-12-20 09:33 | ED_ITS ---
HPI - General Adult General: Chief complaint: Abdominal Pain Stated complaint: DIFF BREATHING, SIDE PAIN Time Seen by Provider: 12/20/19 09:27 History of Present Illness: HPI narrative: She complains about right lower rib pain times this morning he said he coughed pretty hard and felt hurting in there. Says he has had pain in that area of over the last 4 months on and off but today after coughing it really hurt complaint: Rib pain Onset (ago): hour(s) Location: chest Radiation: non-radiation Severity: moderate Severity scale (1-10): 5 Quality: sharp Pain Consistency: colicky Relieving factors: immobilization Exacerbating factors: movement Associated symptoms: Reports no associated symptoms; Deny chest pain, dyspnea, headache(s), nausea, rash or vomiting Review of Systems Const: Denies: fever(s), chills or body aches Eyes: Denies: change in vision or blurry vision ENMT: Denies: throat pain or nasal congestion Card: Denies: chest pain or dyspnea on exertion Resp: Denies: dyspnea, productive cough or non-productive cough GI: Denies: abdominal pain, nausea or vomiting : Denies: difficulty urinating Musc: Reports: other (Right lower rib pain since this morning); Denies: extremity pain Skin/Breast: Denies: rash Neuro: Denies: headache(s) Psych: Denies: anxiety or depression Justus/Lymph: Denies: easy bruising [facility] ED PFSH: Medical History (Updated 12/20/19 @ 10:21 by ALEXANDR Garces) No pertinent past medical history Surgical History H/O eye surgery Family History Grandfather CAD (coronary artery disease) Diabetes Father Cancer Brother Cancer Family/Other Cancer breast Sister Diabetes Denies family history of Anesthesia complication Bleeding disorder Social History Smoking and tobacco status: current every day smoker Alcohol intake: current Alcohol intake frequency: holidays/special occasions only Household members: significant other Marital status: Single Current occupational status: previously employed History of recent travel: No Physical Exam Const: COMMON NORMALS: no acute distress, average body habitus and patient oriented x3 HENMT: COMMON NORMALS: normocephalic HEAD & SCALP: normal to inspection and normocephalic FACE & SINUS: normal facial exam Eye: COMMON NORMALS: conjunctivae normal GENERAL EYE: appearance normal, both eyes and all related structures CONJUNCTIVA: Yes conjunctivae normal Neck/C-Spine: COMMON NORMALS: no JVD Chest: CHEST: Yes localized rib tenderness with anteroposterior compression (Right side) Location: 11th rib and 12th rib Resp: COMMON NORMALS: normal respiratory effort and clear to auscultation bilaterally AUSCULTATION: clear to auscultation bilaterally Cardio: COMMON NORMALS: no JVD, regular rate and regular rhythm RATE: regular rate RHYTHM: regular rhythm GI: COMMON NORMALS: Normal to inspection, nondistended, normoactive bowel sounds present Extremity: COMMON NORMALS: normal to inspection and full ROM Neuro: COMMON NORMALS: patient oriented x3 Course Vital Signs: Vital signs: Vital Signs Temperature 98.1 F 12/20/19 09:19 Pulse Rate 80 12/20/19 09:30 Respiratory Rate 20 H 12/20/19 09:30 Blood Pressure 158/94 12/20/19 09:30 Pulse Oximetry 96 12/20/19 09:30 MDM - General Adult MDM Narrative: Medical decision making narrative: After further with discussion with patient and x-ray results at the seems that patient appears to have problems constipation x-ray showed a lot of gas of not right upper quadrant. He had multiple tests done gallbladder abdominal CTs other tests all come back negative patient says that constipation is probably dealt with for a while and with gas. Symptoms consistent with history discussed how to eliminate this problem. Follow-up was for medical provider Discharge Plan Discharge Patient Disposition: Home Clinical Impression: Pain in rib Constipation Qualifiers: Constipation type: slow transit constipation Qualified Code(s): K59.01 - Slow transit constipation Condition: Stable Prescriptions: New Ducodyl (bisacodyl) 5 mg tablet,delayed release (DR/EC) 5 mg PO DAILY Qty: 20 RF: 0 Stool Softener 250 mg capsule 250 mg PO DAILY Qty: 20 RF: 0 No Action ondansetron HCl [Zofran] 4 mg tablet 4 mg PO Q6H PRN (Reason: nausea and vomiting) Qty: 20 RF: 0 [place] 5-325 mg tablet 1 tab PO Q6H PRN (Reason: pain) Qty: 10 RF: 0 Zofran 4 mg tablet 4 mg PO QID PRN (Reason: nausea and vomiting) Qty: 14 RF: 0 Tylenol 1 - 2 tab PO PRN RF: 0 Discharge Orders: Discharge Order (Routine); Ordered 12/20/19 Ordered By: Ruben Kaye Discharge Diet: As Directed Discharge Activity: Resume usual activity Patient Instructions: Constipation (ED) Activity Restrictions/Additional Instructions: Follow-up with medical provider as directed. Take medications as prescribed. Return to the ER or your medical provider if condition worsens. Please read and understand discharge instructions. If any questions ask please. Recommend high- fiber diet or at least gummy fibers tabs. Can use magnesium citrate to help clear bowels out. Increase exercise take medicines that are [id number] or as prescribed. Coding Level of Care Code ED Gender Studies Professor for [place] Fwd Exam Comprehensive
[2019-12-20] MEDS: ketorolac 60 mg/2 mL INJ IM (10:31)
[2019-12-20 10:35] VITALS: BP 158/94; PULSE 80; RESP 16; O2SAT 96
== END 2019-12-20 10:37 | disposition home or self-care (01) ==
PROVIDERS: Emergency Provider Nurse Practitioner Family
DX: K59.01 Slow transit constipation (principal); F17.210 Nicotine dependence, cigarettes, uncomplicated
CPT/HCPCS: 12345; 71101; 96372; 99281; 99282; 99283; J1885

== ENCOUNTER 2020-01-26 08:50 | Emergency (ER) | payer SELFPAY ==
[2020-01-26 08:51] VITALS: BP 160/98; PULSE 80; RESP 16; TEMP 36.6; O2SAT 98; BMI 40.7
--- NOTE | 2020-01-26 09:30 | XR_ITS ---
WS: [id number] Exam: XR chest 1V portable [id number] Date/Time of Exam: 01/26/2020 9:35 AM Reason For Exam: dyspnea/cough Comparison 12/20/2019. The lungs are fully expanded. Plaque atelectasis in right base. Normal cardiomediastinal structures a nd bony elements. No pleural effusions. XR/XR chest 1V portable [id number] IMPRESSION: 1. No acute cardiopulmonary finding. 2. Plaque atelectasis in the right lung base.
--- NOTE | 2020-01-26 09:36 | ECG_ITS ---
[facility] Test Date: 2020-01-26 Pat Name: Raymon Pascal Department: Room: Gender: Male Tubing Tester: : 1980 Requested By: Brandt Boudreaux Order Number: [id number] Brenden MD: Brigitte Grissom M.D. Measurements Intervals [place] Rate: 84 P: 50 TN: 169 QRS: 43 QRSD: 95 T: 50 QT: 349 QTc: 414 Interpretive Statements SINUS RHYTHM Compared to ECG 07/25/2019 17:16:39 T-wave abnormality no longer present Electronically Signed On 01-26-2020 21:42:46 PHOTOGRAPHIC ENLARGER OPERATOR by Brigitte Grissom M.D. [id number] f
[2020-01-26 09:37] LABS: Basophils # 0.1 10^3/uL (0.0-0.1); Basophils % 0.9 %; Eosinophils # 0.2 10^3/uL (0.0-0.8); Eosinophils % 2.7 %; Hematocrit 51.8 % (42.0-52.0); Hemoglobin 16.4 g/dL (11.7-16.6); Lymphocytes # 1.7 10^3/uL (0.8-4.8); Lymphocytes % 18.7 %; Mean Corpuscular HGB Conc 31.7 g/dL (30.0-36.0); Mean Corpuscular Volume 94.7 fL (80-94); Mean Platelet Volume 9.8 fL (7.4-10.4); Monocytes # 0.6 10^3/uL (0.2-0.9); Monocytes % 6.4 %; Neutrophils # 6.33 10^3/uL (1.8-7.7); Neutrophils % 71.1 %; Nucleated Red Blood Cells % 0 %; Platelet Count 274 10^3/cmm (130-400); Red Blood Count 5.47 10^6/uL (4.1-5.3); Red Cell Distribution Width 13.5 % (12.1-15.1); White Blood Count 8.9 10^3/uL (4.0-10.0)
--- NOTE | 2020-01-26 09:42 | PC.NURSE ---
Read and agree with assessment
[2020-01-26 09:47] LABS: Alanine Aminotransferase 45 U/L (0-41); Albumin Level 4.3 g/dL (3.5-5.2); Alkaline Phosphatase 105 IU/L (40-130); Anion Gap 11.1 (5-19); Aspartate Amino Transferase 22 U/L (0-40); Blood Urea Nitrogen 6 mg/dL (6-20); Calcium 8.8 mg/dL (8.5-10.5); Carbon Dioxide 31 mmol/L (22-29); Chloride 97 mmol/L (98-107); Globulin 3.1 g/dL (1.3-4.6); Glomerular Filtration Rate 150.8 mL/min (90-130); Glucose 148 mg/dL (65-115); Osmolality Calculated 280 mOsm/kg (285-295); Potassium 4.1 mmol/L (3.5-5.1); Sodium 135 mmol/L (136-145); Total Bilirubin 0.3 mg/dL (0.15-1.2); Total Protein 7.4 g/dL (6.6-8.7)
[2020-01-26 09:59] LABS: D Dimer 0.35 ug/mIFEU (0-0.59)
--- NOTE | 2020-01-26 10:02 | W.ED.SOB ---
HPI - SOB/Dyspnea General: Chief Complaint: Shortness of Breath/Dyspnea Stated Complaint: DIFF BREATHING Time Seen by Provider: 01/26/20 08:58 History of Present Illness: HPI Narrative: 39-year-old male complains of right lower chest pain. He states he was seen in the emergency room for previously those notes were reviewed today. He states his the pain is worse with movement deep inspiration or cough. Document also can be reproduced reproduced by palpation of the right lower ribs. Causes some mild shortness of breath because he feels like he cannot take a deep breath. He is not had any fever with it is not had a productive cough. This been an on and off problem for the last 2 months now. He cannot recall any particular trauma. Other than rest and avoiding taking deep breaths he is not noticed any relieving factors. MD elicited complaint: pain with inspiration Onset (ago): week(s) Timing: intermittent Exacerbating factors: movement, coughing, inspiration and other (Palpation) Relieving factors: nothing Associated symptoms: Reports chest pain, cough and myalgias; Deny abdominal pain, chest congestion, diaphoresis, dizziness, extremity pain, fever(s), hemoptysis, lightheadedness, nausea, orthopnea, palpitations, paresthesias, polydipsia, polyuria, rash, sense of impending doom, syncope or vomiting Treatment prior to arrival: none Review of Systems Const: Denies: fever(s) or diaphoresis ENMT: Denies: throat pain, ear or mastoid pain, nasal discharge or nasal congestion Card: Reports: chest pain; Denies: palpitations, lightheadedness, syncope or orthopnea Resp: Denies: hemoptysis or chest congestion GI: Denies: abdominal pain, nausea or vomiting : Denies: flank pain, dysuria, urinary frequency or urinary urgency Musc: Denies: extremity pain Skin/Breast: Denies: rash or pruritus Neuro: Denies: dizziness Endo: Denies: polyuria or polydipsia PFS ED PFSH: Medical History (Updated 01/26/20 @ 11:29 by Brandt Garsia DO) No pertinent past medical history Surgical History H/O eye surgery Family History Grandfather CAD (coronary artery disease) Diabetes Father Cancer Brother Cancer Family/Other Cancer breast Sister Diabetes Denies family history of Anesthesia complication Bleeding disorder Social History Smoking and tobacco status: current every day smoker Alcohol intake: current Alcohol intake frequency: holidays/special occasions only Household members: significant other Marital status: Single Current occupational status: previously employed History of recent travel: No Physical Exam Const: COMMON NORMALS: no acute distress GENERAL APPEARANCE: cooperative and comfortable ORIENTATION/CONSCIOUSNESS: Yes awake, Yes oriented to person, Yes oriented to place and Yes oriented to time HENMT: COMMON NORMALS: normocephalic, atraumatic and hearing grossly normal bilaterally HEAD & SCALP: normocephalic and atraumatic Neck/C-Spine: COMMON NORMALS: full ROM, no lymphadenopathy, supple and no JVD Lymph: LYMPHATIC: no lymphadenopathy noted and no lymphedema noted Resp: COMMON NORMALS: normal respiratory effort, No retractions, No use of accessory muscles and clear to auscultation bilaterally AUSCULTATION: clear to auscultation bilaterally Cardio: COMMON NORMALS: no JVD, regular rate, regular rhythm and No murmurs present (Cardio) RATE: regular rate RHYTHM: regular rhythm GI: COMMON NORMALS: Soft to palpation and No hepatosplenomegaly present AUSCULTATION: Yes normoactive bowel sounds PALPATION: Yes Soft to palpation, No Tenderness to palpation present (GI), No Guarding due to palpation present (GI) and Yes No hepatosplenomegaly present Extremity: COMMON NORMALS: normal to inspection, capillary refill normal, no clubbing, cyanosis or edema, no calf tenderness and no pedal edema Neuro: SENSORIUM/ORIENTATION: Yes oriented to person, Yes oriented to place and Yes oriented to time Skin: COMMON NORMALS: no rashes or lesions noted GENERAL SKIN EXAM: no rashes or lesions noted Course Vital Signs: Vital signs: Vital Signs Temperature 97.8 F 01/26/20 08:51 Pulse Rate 80 01/26/20 08:51 Respiratory Rate 16 01/26/20 08:51 Blood Pressure 160/98 01/26/20 08:51 Pulse Oximetry 98 01/26/20 08:51 MDM - SOB/Dyspnea MDM Narrative: Medical decision making narrative: CT shows eighth rib fracture. Will go ahead and treat him for pain from that. He denies any trauma to possible that this is recurrent occurred from recurrent coughing. He has an old fracture that is callus in the place. In addition of the pain control we will set him up for pulmonology to see if they find anything else he may need pulmonary function tests. Lab Data: Labs: Lab Results 01/26/20 01/26/20 01/26/20 Range/Units 09:05 09:05 09:05 WBC 8.9 (4.0-10.0) 10^3/ uL RBC 5.47 H (4.1-5.3) 10^6/u L Hgb 16.4 (11.7-16.6) g/dL Hct 51.8 (42.0-52.0) % MCV 94.7 H (80-94) fL MCH 30.0 (28.0-34.0) pg MCHC 31.7 (30.0-36.0) g/dL RDW 13.5 (12.1-15.1) % Plt Count 274 (130-400) 10^3/c mm MPV 9.8 (7.4-10.4) fL Neut % (Auto) 71.1 % Lymph % (Auto) 18.7 % [place] % (Auto) 6.4 % Eos % (Auto) 2.7 % Baso % (Auto) 0.9 % Neut # (Auto) 6.33 (1.8-7.7) 10^3/u L Lymph # (Auto) 1.7 (0.8-4.8) 10^3/u L [place] # (Auto) 0.6 (0.2-0.9) 10^3/u L Eos # (Auto) 0.2 (0.0-0.8) 10^3/u L Baso # (Auto) 0.1 (0.0-0.1) 10^3/u L Nucleated RBC % (a uto) 0 % Nucleated RBCs # 0.0 /100WBC D-Dimer 0.35 (0-0.59) ug/mIFE U Sodium 135 L (136-145) mmol/L Potassium 4.1 (3.5-5.1) mmol/L Chloride 97 L (98-107) mmol/L Carbon Dioxide 31 H (22-29) mmol/L Anion Gap 11.1 (5-19) BUN 6 (6-20) mg/dL Creatinine 0.6 L (0.7-1.2) mg/dL GFR Calculation 150.8 H (90-130) mL/min Glucose 148 H (65-115) mg/dL Calculated Osmolal ity 280 L (285-295) mOsm/k g Calcium 8.8 (8.5-10.5) mg/dL Total Bilirubin 0.3 (0.15-1.2) mg/dL AST 22 (0-40) U/L ALT 45 H (0-41) U/L Alkaline Phosphata se 105 (40-130) IU/L Total Protein 7.4 (6.6-8.7) g/dL Albumin 4.3 (3.5-5.2) g/dL Globulin 3.1 (1.3-4.6) g/dL Discharge Plan Discharge Patient Disposition: Home Clinical Impression: Closed rib fracture, Chronic cough Condition: Stable Prescriptions: New hydrocodone-acetaminophen 5-325 mg tablet 1 tab PO Q6H PRN (Reason: pain) Qty: 20 RF: 0 No Action ondansetron HCl [Zofran] 4 mg tablet 4 mg PO Q6H PRN (Reason: nausea and vomiting) Qty: 20 RF: 0 hydrocodone-acetaminophen [[place]] 5-325 mg tablet 1 tab PO Q6H PRN (Reason: pain) Qty: 10 RF: 0 ondansetron HCl [Zofran] 4 mg tablet 4 mg PO QID PRN (Reason: nausea and vomiting) Qty: 14 RF: 0 bisacodyl [Ducodyl (bisacodyl)] 5 mg tablet,delayed release (DR/EC) 5 mg PO DAILY Qty: 20 RF: 0 docusate sodium [Stool Softener] 250 mg capsule 250 mg PO DAILY Qty: 20 RF: 0 Tylenol 1 - 2 tab PO PRN RF: 0 Discharge Orders: Discharge Order (Routine); Ordered 01/26/20 Ordered By: Brandt Garsia Discharge Diet: Usual diet Discharge Activity: Increase activity as tolerated Activity Restrictions/Additional Instructions: Case management will make an appointment for you to see the motor teacher (lung specialist) Coding Level of Care Code ED Microbiological Laboratory Technician for g Fwd Exam Comprehensive
--- NOTE | 2020-01-26 10:07 | CT_ITS ---
WS: [id number] CT CHEST ANGIOGRAPHY WITH REFORMATS HISTORY: Chest pain, dyspnea TECHNIQUE: Contiguous axial images are obtained through the chest during arterial injection of intrav enous contrast. Images are reconstructed to evaluate the pulmonary arteries. MIP imaging also reviewe d. All CT scans at [facility] use at least one of these dose optimization techniques: aut omated exposure control; mA and/or kV adjustment per patient size (includes targeted exams where dose is matched to clinical indication); or iterative reconstruction. CONTRAST: Omnipaque 350; 95 mL IV. DLP: 1686.22 mGy.cm COMPARISON: Radiograph 01/26/2020. Suboptimal opacification of the pulmonary arteries. Centrally no pulmonary emboli are identified. Bey ond the main branches the opacification is significantly limited. Linear areas of atelectasis in the RIGHT middle and RIGHT lower lobe. No pleural effusion or pericardial effusion. Normal size pulmonary artery. Numerous the small axillary lymph nodes. Mediastinal and hilar lymph nodes are numerous but the majority of these lymph nodes are less than a centimeter. At the RIGHT hilum the largest lymph no de measures 13 mm. Nondisplaced posterior RIGHT eighth rib fracture without callus formation. Ninth rib is fractured wit h callus formation. CT/CT angio chest PE protcl [id number] IMPRESSION: 1. Opacification of pulmonary arteries limited due to injection being suboptim al. No central pulmonary embolism. 2. Indeterminate bilateral hilar lymph nodes. May be reactive. There are addit ional subcentimeter lymph nodes which are numerous but not enlarged. 3. Subsegmental atelectasis RIGHT middle and RIGHT lower lobe. 4. No pneumonia. 5. Age-indeterminate RIGHT posterior eighth rib fracture without callus format ion. Additional ninth rib fracture on the RIGHT with callus formation.
[2020-01-26] MEDS: iohexol 350 mg/mL 100 mL Btl IV ×2 (10:23→10:41)
[2020-01-26 11:27] VITALS: BP 154/103; PULSE 78; RESP 15; O2SAT 97
--- NOTE | 2020-01-26 13:21 | DCPLANNER ---
plant floor automation manager was to schedule a follow up appointment for patient with pulmonolgy. plant floor automation manager called [facility], spoke with Iman, gave clinic patients information. A follow up appointment was scheduled for Saturday, February 17, 2020 at 3:[address] Springer. plant floor automation manager called patient, spoke with patients friend, gave her the appointment information.
--- NOTE | 2020-02-19 14:56 | DCPLANNER ---
Patients appointment scheduled for 02.17.20 has been rescheduled for March.
== END 2020-01-26 11:28 | disposition home or self-care (01) ==
PROVIDERS: Emergency Provider Family Medicine
DX: S22.31XA Fracture of one rib, right side, initial encounter for closed fracture (principal); R05 Cough; F17.210 Nicotine dependence, cigarettes, uncomplicated; X58.XXXA Exposure to other specified factors, initial encounter
CPT/HCPCS: 12345; 71045; 71275; 80053; 85025; 85378; 93005; 99283; Q9967

== ENCOUNTER 2020-03-30 04:34 | Emergency (ER) | payer SELFPAY ==
[2020-03-30 04:39] VITALS: BP 150/95; PULSE 88; RESP 18; TEMP 36.8; O2SAT 96; BMI 42.4
--- NOTE | 2020-03-30 04:49 | XR_ITS ---
WS: [id number] Portable AP upright chest, 03/30/2020 Clinical Data: cp Comparison: Portable chest, 01/26/2020. Findings: No nodules, masses or effusions are seen. The heart is normal. The pulmonary vascularity is not increased. No pneumonia or pneumothorax is seen. There is minimal atelectasis in the right lower lobe. XR/XR chest 2V* [id number] Impression: Negative chest.
--- NOTE | 2020-03-30 04:52 | ED_ITS ---
HPI - General Adult General: Chief complaint: General Medical Stated complaint: upper abdominal/rib pain on right side Time Seen by Provider: 03/30/20 04:49 Source: patient Mode of arrival: ambulatory History of Present Illness: HPI narrative: 39-year-old male states he was playing with child last night and also was coughing and felt a pop in his right chest. He states it was a sudden sharp pain in the right chest wall. He states its much worse with deep breaths and or palpation. He states that at rest she has 0 pain. He states worst pain is 3 out of 10. Denies any vomiting or diarrhea. He denies any shortness of breath. Denies any cough at this time. Associated symptoms: Reports chest pain; Deny dyspnea, headache(s), nausea, rash or vomiting Review of Systems Const: Denies: fever(s), chills, body aches or change in appetite Eyes: Denies: blurry vision or eye discomfort ENMT: Denies: throat pain or dental pain Card: Reports: chest pain Resp: Denies: dyspnea GI: Denies: abdominal pain, nausea, vomiting or diarrhea : Denies: dysuria Musc: Denies: neck pain or back pain Skin/Breast: Denies: rash Neuro: Denies: headache(s) Psych: Denies: depression Justus/Lymph: Denies: easy bruising All/Imm: Denies: urticaria PFSH ED PFSH: Medical History (Updated 03/30/20 @ 05:06 by Terri Moya MD) No pertinent past medical history Surgical History H/O eye surgery Family History Grandfather CAD (coronary artery disease) Diabetes Father Cancer Brother Cancer Family/Other Cancer breast Sister Diabetes Denies family history of Anesthesia complication Bleeding disorder Social History Smoking and tobacco status: current every day smoker Alcohol intake: current Alcohol intake frequency: holidays/special occasions only Household members: significant other Marital status: Single Current occupational status: previously employed History of recent travel: No Physical Exam Const: COMMON NORMALS: no acute distress, patient oriented x3 and healthy appearing HENMT: COMMON NORMALS: normocephalic and atraumatic HEAD & SCALP: normocephalic and atraumatic Eye: COMMON NORMALS: Equal, round and reactive pupils present and EOMs intact bilaterally PUPIL: Yes Equal, round and reactive pupils present Neck/C-Spine: COMMON NORMALS: full ROM and supple Chest: COMMONS NORMALS: normal inspection of the chest OTHER: Point tender over the right chest reproduces his pain Resp: COMMON NORMALS: normal respiratory effort, No retractions, No use of accessory muscles and clear to auscultation bilaterally AUSCULTATION: clear to auscultation bilaterally Cardio: COMMON NORMALS: regular rate, regular rhythm and No murmurs present (Cardio) RATE: regular rate RHYTHM: regular rhythm GI: COMMON NORMALS: Normal to inspection, nondistended, normoactive bowel sounds present, Soft to palpation, non-tender and no masses PALPATION: Yes Soft to palpation Extremity: COMMON NORMALS: normal to inspection and full ROM Neuro: COMMON NORMALS: patient oriented x3, moves all extremities and no focal motor deficits Psych: COMMON NORMALS: mental status grossly normal, Normal thought process present and cooperative THOUGHT PROCESS: Normal thought process present Skin: COMMON NORMALS: no rashes or lesions noted and no wounds GENERAL SKIN EXAM: no rashes or lesions noted Course Vital Signs: Vital signs: Vital Signs Temperature 98.2 F 03/30/20 04:39 Pulse Rate 88 03/30/20 04:39 Respiratory Rate 18 03/30/20 04:39 Blood Pressure 150/95 03/30/20 04:39 Pulse Oximetry 96 03/30/20 04:39 MDM - General Adult MDM Narrative: Medical decision making narrative: Raymon presents with chest pain is very atypical in nature is likely chest wall pain. He is point tender on his exam. EKG shows no acute abnormalities and x-ray shows no signs of pneumothorax. Patient has no signs of acute coronary syndrome or pulmonary embolism. Patient is stable for discharge will place on Naprosyn. He is to follow-up his PCP in 2 to 4 days and return if worsening. EKG Data^: EKG 1: Attestation: I personally reviewed and interpreted this EKG as follows: EKG interpretation date: 03/30/20 EKG interpretation time: 05:11 Interpretation: nsr hr [address] or t wave abnormalities qrs 97 qtc 380 Discharge Plan Discharge Patient Disposition: Home Clinical Impression: Chest wall pain Condition: Stable Prescriptions: New Naprosyn 500 mg tablet 500 mg PO BID PRN (Reason: pain) Qty: 20 RF: 0 No Action ondansetron HCl [Zofran] 4 mg tablet 4 mg PO Q6H PRN (Reason: nausea and vomiting) Qty: 20 RF: 0 hydrocodone-acetaminophen [[place]] 5-325 mg tablet 1 tab PO Q6H PRN (Reason: pain) Qty: 10 RF: 0 ondansetron HCl [Zofran] 4 mg tablet 4 mg PO QID PRN (Reason: nausea and vomiting) Qty: 14 RF: 0 bisacodyl [Ducodyl (bisacodyl)] 5 mg tablet,delayed release (DR/EC) 5 mg PO DAILY Qty: 20 RF: 0 docusate sodium [Stool Softener] 250 mg capsule 250 mg PO DAILY Qty: 20 RF: 0 hydrocodone-acetaminophen 5-325 mg tablet 1 tab PO Q6H PRN (Reason: pain) Qty: 20 RF: 0 Tylenol 1 - 2 tab PO PRN RF: 0 Discharge Orders: Discharge ED (Routine); Ordered 03/30/20 Ordered By: Terri Myoa Discharge Diet: Advance as tolerated Discharge Activity: Resume usual activity Patient Instructions: Chest Pain - Chest Wall Stand Alone Forms: Work/School Release Coding Level of Care Code ED Sanitation Worker Cleaning Equipment for [place] Fwd Exam Comprehensive
[2020-03-30] MEDS: naproxen 500 mg Tablet PO (04:56)
--- NOTE | 2020-03-30 05:10 | ECG_ITS ---
[facility] Test Date: 2020-03-30 Pat Name: Raymon Pascal Department: Room: Gender: Male Pot Sander: : 1980 Requested By: Terri Moya Order Number: [id number] Brenden MD: Lon Mcmillan M.D. Measurements Intervals [place] Rate: 71 P: 40 [place]: 181 QRS: 40 QRSD: 97 T: 42 QT: 358 QTc: 390 Interpretive Statements SINUS RHYTHM Compared to ECG 01/26/2020 09:59:13 No significant changes Electronically Signed On 03-30-2020 17:59:27 REMOTE SENSING ENGINEER by Lon Mcmillan M.D. [id number]
== END 2020-03-30 05:16 | disposition home or self-care (01) ==
PROVIDERS: Emergency Provider Emergency Medicine
DX: R07.89 Other chest pain (principal); F17.210 Nicotine dependence, cigarettes, uncomplicated
CPT/HCPCS: 12345; 71046; 93005; 99281; 99283

== ENCOUNTER 2021-09-18 12:25 | Emergency (ER) | payer SELFPAY ==
[2021-09-18 13:17] VITALS: BP 134/69; PULSE 79; RESP 18; TEMP 37.3; O2SAT 100; BMI 38.2
--- NOTE | 2021-09-18 14:08 | XRR_ITS ---
PROCEDURE INFORMATION: Exam: XR Left Foot Exam date and time: 09/18/2021 2:10 PM Age: 41 years old Clinical indication: Swelling, leg or foot; Patient HX: Left foot pain. Lt foot is red and raw around his toes. PT states that he has been dealing with athletes foot but now believes there is an infection in them TECHNIQUE: Imaging protocol: Radiologic exam of the Left foot. Views: 3 or more views. COMPARISON: No relevant prior studies available. FINDINGS: Bones/joints: Minimal spurring is noted at the 1st TMT and MTP joints with no acute fracture dislocation or joint erosions. No obvious radiographic evidence of acute osteomyelitis. Soft tissues: Probable mild soft tissue swelling in the forefoot. No soft tissue gas. Other findings: Three views submitted. XR/XR foot LT min 3V* [id number] IMPRESSION: No acute osseous findings.
--- NOTE | 2021-09-18 14:13 | W.ED.GENADLT ---
HPI - General Adult General: Chief complaint: General Medical Stated complaint: left feet in pain Time Seen by Provider: 09/18/21 14:11 History of Present Illness: Patient is a 41-year-old male who presents emergency room with complaints of left foot pain. Patient tells me that since He has noticed interdigitary pain and foul smell from his left foot. Patient denies any fever or chills, swelling or erythema. Patient says that the folds between his toes are painful. No other focal complaints at this time. Onset:4 days ago Duration:4 days Location:home Severity:moderate Associated symptoms: Deny chest pain, dyspnea, nausea, palpitations or vomiting Review of Systems Const: Denies: fever(s) or chills Eyes: Denies: change in vision ENMT: Denies: mouth pain Card: Denies: chest pain or palpitations Resp: Denies: dyspnea or non-productive cough GI: Denies: abdominal pain, nausea, vomiting or diarrhea : Denies: dysuria Musc: Denies: extremity pain Skin/Breast: Reports: new lesions (+L interdigitary pain and foul smell) Neuro: Denies: weakness in extremities Psych: Reports: other (Normal mood) Justus/Lymph: Denies: easy bruising PFSH ED PFSH: Medical History No pertinent past medical history Surgical History H/O eye surgery Family History Grandfather CAD (coronary artery disease) Diabetes Father Cancer Brother Cancer Family/Other Cancer breast Sister Diabetes Denies family history of Anesthesia complication Bleeding disorder Social History Smoking and tobacco status: current every day smoker Alcohol intake: current Alcohol intake frequency: holidays/special occasions only Household members: significant other Marital status: Single Current occupational status: previously employed History of recent travel: No Physical Exam Const: COMMON NORMALS: alert HENMT: COMMON NORMALS: atraumatic HEAD & SCALP: atraumatic MOUTH: moist mucous membranes not abnormal Eye: COMMON NORMALS: EOMs intact bilaterally and conjunctivae normal CONJUNCTIVA: Yes conjunctivae normal Neck/C-Spine: COMMON NORMALS: full ROM and supple Resp: COMMON NORMALS: normal respiratory effort and clear to auscultation bilaterally AUSCULTATION: clear to auscultation bilaterally Cardio: COMMON NORMALS: regular rate RATE: regular rate GI: COMMON NORMALS: Soft to palpation and non-tender PALPATION: Yes Soft to palpation Extremity: COMMON NORMALS: full ROM Neuro: SENSORIUM/ORIENTATION: Yes alert MOTOR EXAM: No Abnormal motor strength present and Other motor observations present (no focal motor deficits) Psych: COMMON NORMALS: speech normal SPEECH: Yes normal speech MOOD & AFFECT: Yes euthymic mood Skin: NARRATIVE SKIN EXAM: + Left interdigitary erythema and skin erosion with foul-smell and crusting between the first/second, second/third, and third/fouth digit Course Vital Signs: Vital signs: Vital Signs Temperature 99.1 F 09/18/21 13:17 Pulse Rate 79 09/18/21 13:17 Respiratory Rate 18 09/18/21 13:17 Blood Pressure 134/69 09/18/21 13:17 Pulse Oximetry 100 09/18/21 13:17 MDM - General Adult Medical Decision Making 41-year-old male presented to the emergency room with concerns of interdigitary tinea pedis. Exam is consistent with tinea pubis. Patient received clotrimazole cream to go home. Patient is instructed to continue taking clometrizole for the next 8 weeks until symptoms improved. Disposition: Discharge. Patient counseled regarding diagnostic impression, treatment plan. Patient given ED strict return precautions to return for continuation, worsening, or development of new symptoms. Instructed to f/u w/ PCP regarding symptoms today. Patient verbalized understanding. Lab Data Radiology Impressions Foot X-Ray 09/18/21 14:08 IMPRESSION: No acute osseous findings. Discharge Plan Discharge Patient Disposition: Home Clinical Impression: Tinea pedis Condition: Stable Prescriptions: New Antifungal (clotrimazole) 1 % cream 1 applic topical BID 56 Days 0RF Discharge Orders: Discharge ED (Routine); Ordered 09/18/21 Ordered By: Shavonne Flaherty Discharge Diet: Advance as tolerated Discharge Activity: Increase activity as tolerated Activity Restrictions/Additional Instructions: Please take your antifungal as instructed. Watch out for signs of skin changes/redness, mouth redeness or swelling, nausea/vomiting, diarrhea, blood in the urine or any new or concerning complaints. Come back if you have any new or concerning complaints. Stand Alone Forms: Work/School Release Coding Level of Care Code ED Human Resources Supervisor for [employer] Fwd Exam Comprehensive
== END 2021-09-18 15:32 | disposition home or self-care (01) ==
PROVIDERS: Emergency Provider Emergency Medicine
DX: B35.3 Tinea pedis (principal)
CPT/HCPCS: 73630; 99283

== ENCOUNTER 2022-01-10 14:22 | Emergency (ER) | payer OTHER, SELFPAY ==
[2022-01-10 14:31] VITALS: BP 158/65; PULSE 93; RESP 18; TEMP 36.5; O2SAT 97; BMI 38.8
--- NOTE | 2022-01-10 14:46 | XRR_ITS ---
PROCEDURE INFORMATION: Exam: XR Left Hand Exam date and time: 01/10/2022 2:55 PM Age: 41 years old Clinical indication: Injury or trauma; Other: Laceration; Hand and finger; Left; Ring finger; Additional info: Injury to distal tip of fourth digit TECHNIQUE: Imaging protocol: Radiologic exam of the Left hand. Views: 3 or more views. COMPARISON: No relevant prior studies available. FINDINGS: Bones/joints: See Soft tissues finding. Soft tissues: There is soft tissue amputation defect through the distal aspect of the 4th digit along with an osseous amputation defect at the most distal tuft of 4th digit. There is also an oblique fracture through the distal aspect of 4th distal phalanx, just proximal to the amputation defect with slight displacement. No dislocation. Other findings: Three views submitted. XR/XR hand LT min 3V* [id number] IMPRESSION: Distal 4th digit injury. See discussion above.
[2022-01-10 14:51] VITALS: RESP 16
[2022-01-10] MEDS: oxyCODONE-APAP 5-325 mg Tablet 1 TAB PO (14:51)
--- NOTE | 2022-01-10 15:01 | ED_ITS ---
Documented by User: NEELA David 01/11/22 15:11 HPI - Wound/Laceration General: Chief Complaint: Wound/Laceration Stated Complaint: cut hand and bleeding Time Seen by Provider: 01/10/22 14:50 History of Present Illness: Patient is a 41-year-old male comes to the ED with an injury to fourth finger on left hand. Patient was at work and he got his left finger stuck in a machine. He he rates his pain currently a 10 out of 10. Distal end of finger is bloody and was covered in bandage immediately after. Patient is not up-to-date on his tetanus. Associated symptoms: Denies chills, fever(s), nausea or vomiting Review of Systems Const: Denies: fever(s), chills or fatigue Eyes: Denies: change in vision or eye discomfort ENMT: Denies: throat pain, odynophagia, nasal discharge or nasal congestion Card: Denies: chest pain, palpitations, edema, swelling of feet/ankles, dyspnea on exertion or orthopnea Resp: Denies: dyspnea, productive cough or non-productive cough GI: Denies: abdominal pain, nausea, vomiting, diarrhea, constipation or hematochezia : Denies: flank pain, difficulty urinating, dysuria or hematuria Musc: Reports: extremity pain (Injury to fourth digit of left hand.); Denies: neck pain, back pain or extremity swelling Skin/Breast: Denies: rash or new lesions Neuro: Denies: headache(s), numbness in extremities or weakness in extremities [facility] ED PFSH: Medical History No pertinent past medical history Surgical History H/O eye surgery Family History Grandfather CAD (coronary artery disease) Diabetes Father Cancer Brother Cancer Family/Other Cancer breast Sister Diabetes Denies family history of Anesthesia complication Bleeding disorder Social History Smoking and tobacco status: current every day smoker Alcohol intake: current Alcohol intake frequency: holidays/special occasions only Household members: significant other Marital status: Single Current occupational status: previously employed History of recent travel: No Physical Exam Const: COMMON NORMALS: no acute distress, patient oriented x3, healthy appearing and alert GENERAL APPEARANCE: cooperative and comfortable HENMT: COMMON NORMALS: normocephalic HEAD & SCALP: normocephalic MOUTH: Normal oral and palatal mucosa present THROAT: posterior oropharynx normal and uvula midline Neck/C-Spine: COMMON NORMALS: supple GENERAL: Yes normal visual inspection Resp: COMMON NORMALS: normal respiratory effort, No retractions, No use of accessory muscles and clear to auscultation bilaterally AUSCULTATION: clear to auscultation bilaterally Cardio: COMMON NORMALS: regular rate, regular rhythm, S1 normal heart sound present, S2 normal heart sound present, No gallops present (Cardio), No clicks present (Cardio), No murmurs present (Cardio) and Peripheral pulses 2+ throughout RATE: regular rate RHYTHM: regular rhythm HEART SOUNDS: S1 normal heart sound present and S2 normal heart sound present PERIPHERAL PULSES: Peripheral pulses 2+ throughout GI: COMMON NORMALS: Normal to inspection, nondistended, normoactive bowel sounds present, Soft to palpation, non-tender and no masses PALPATION: Yes Soft to palpation : COMMON NORMALS: Yes no CVA tenderness BLADDER/KIDNEY EXAM: Yes no CVA tenderness Back/Pelvis: COMMON NORMALS: no CVA tenderness Extremity: NARRATIVE EXTREMITY EXAM: Left hand?distal end of fourth digit has been degloved including the nail. No visible bone seen on exam. Very minimal active bleeding. Neuro: COMMON NORMALS: patient oriented x3 SENSORIUM/ORIENTATION: Yes alert GAIT: Yes Normal gait present Skin: GENERAL SKIN EXAM: dry skin Procedures Nerve Block Nerve Block 1: Time out performed: Yes Local Anesthetic: lidocaine 2% Amount of anesthesia used (mL): 6 Side: left Nerve Blocks: digital (Fourth digit) Procedure Successful: Yes Patient Tolerated Procedure: well Complications: none Course Vital Signs: Vital signs: Vital Signs Temperature 97.7 F 01/10/22 14:31 Pulse Rate 93 01/10/22 14:31 Respiratory Rate 16 01/10/22 14:51 Blood Pressure 158/65 01/10/22 14:31 Pulse Oximetry 97 01/10/22 14:31 Oxygen Delivery Me thod 01/10/22 14:31 MDM - Wound/Laceration Medical Decision Making Patient is a 41-year-old male comes to the ED with degloving injury of fourth digit. I contacted Dr. Springer and told him about patient case and sent him images of patient's finger. He wanted me to use a digital block to help with pain. Irrigate and clean out wound thoroughly and then apply Vaseline gauze bandage and he will follow-up with patient in his clinic on January 12. I performed a digital block with lidocaine 2% and the nurse then used a surgical scrub brush to clean hand and finger and then irrigated finger out with normal saline and beta iodine solution thoroughly. Patient was given a dose of IV Ancef and tetanus. I placed order with case management for patient be referred to Ortho for follow-up on January 12. Nurse used Vaseline gauze wrap with extra padding over finger. Patient was told to leave bandage on until he sees Dr. Springer on Saturday. He was discharged home with a prescription for cephalexin and ibuprofen 800 mg and hydrocodone for acute pain. Patient understood and agreed with plan. Lab Data I reviewed the patient's lab results. Radiology Impressions Hand X-Ray 01/10/22 14:46 IMPRESSION: Distal 4th digit injury. See discussion above. Laboratory Results Urine Opiates Screen Negative ng/mL (Negative) 01/10/22 14:29 Ur Barbiturates Screen Negative ng/mL (Negative) 01/10/22 14:29 Ur Phencyclidine Scrn Negative ng/mL (Negative) 01/10/22 14:29 Ur Amphetamines Screen Negative ng/mL (Negative) 01/10/22 14:29 U Benzodiazepines Scrn Negative ng/mL (Negative) 01/10/22 14:29 Urine Cocaine Screen Negative ng/mL (Negative) 01/10/22 14:29 U Marijuana (THC) Screen Negative ng/mL (Negative) 01/10/22 14:29 Discharge Plan Discharge Patient Disposition: Home Clinical Impression: Fracture of distal phalanx of finger Qualifiers: Encounter type: initial encounter Finger: ring finger Fracture type: open F racture alignment: nondisplaced Laterality: left Qualified Code(s): S62.665B - Nondisplaced fracture of distal phalanx of left ring finger, initial encounter for open fracture Degloving injury of finger Qualifiers: Encounter type: initial encounter Qualified Code(s): S61.209A - Unspecified open wound of unspecified finger without damage to nail, initial encounter Condition: Stable Prescriptions: New cephalexin 500 mg capsule 500 mg PO Q6H 7 Days Qty: 28 0RF ibuprofen 800 mg tablet 800 mg PO Q8H PRN (Reason: pain) Qty: 30 0RF Discharge Orders: Discharge ED (Routine); Ordered 01/10/22 Ordered By: Raji Abraham Discharge Diet: Regular Discharge Activity: Limit activity as instructed Patient Instructions: Opioid Safety Activity Restrictions/Additional Instructions: Follow-up with medical provider as directed. Contact [facility] orthopedic clinic tomorrow morning to make sure you get an appointment set up for January 12. Phone number is [phone]. Keep dressing on until evaluated by Dr. Springer on Saturday. Take medications as prescribed. Return to the ER or your medical provider if condition worsens. Please read and understand discharge instructions. Thank you for choosing [facility] for your healthcare needs today. Please realize this is an emergency room and that we are providing you with a medical screening exam and this may not be complete and all inclusive of all the testing and or work up that you may need to determine your ailment or severity of your illness. It is very important that you follow up as instructed or that you return to the Emergency Department should you have concerns or if your condition changes or worsens in any way. 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 Fwd Exam Comprehensive Documented by User: Milton Morrison MD 01/16/22 10:40 HPI - Wound/Laceration General: Chief Complaint: Wound/Laceration Stated Complaint: cut hand and bleeding Time Seen by Provider: 01/10/22 14:50 PFSH ED PFSH: Medical History No pertinent past medical history Surgical History H/O eye surgery Family History Grandfather CAD (coronary artery disease) Diabetes Father Cancer Brother Cancer Family/Other Cancer breast Sister Diabetes Denies family history of Anesthesia complication Bleeding disorder Social History Smoking and tobacco status: current every day smoker Alcohol intake: current Alcohol intake frequency: holidays/special occasions only Household members: significant other Marital status: Single Current occupational status: previously employed History of recent travel: No Course Vital Signs: Vital signs: Vital Signs Temperature 97.7 F 01/10/22 14:31 Pulse Rate 93 01/10/22 14:31 Respiratory Rate 16 01/10/22 14:51 Blood Pressure 158/65 01/10/22 14:31 Pulse Oximetry 97 01/10/22 14:31 Oxygen Delivery Me thod 01/10/22 14:31 MDM - Wound/Laceration Medical Decision Making Patient is a 41-year-old male comes to the ED with degloving injury of fourth digit. I contacted Dr. Springer and told him about patient case and sent him images of patient's finger. He wanted me to use a digital block to help with pain. Irrigate and clean out wound thoroughly and then apply Vaseline gauze bandage and he will follow-up with patient in his clinic on January 12. I performed a digital block with lidocaine 2% and the nurse then used a surgical scrub brush to clean hand and finger and then irrigated finger out with normal saline and beta iodine solution thoroughly. Patient was given a dose of IV Ancef and tetanus. I placed order with case management for patient be referred to Ortho for follow-up on January 12. Nurse used Vaseline gauze wrap with extra padding over finger. Patient was told to leave bandage on until he sees Dr. Springer on Saturday. He was discharged home with a prescription for cephalexin and ibuprofen 800 mg and hydrocodone for acute pain. Patient understood and agreed with plan. I have reviewed this documentation by NEELA David. Milton Morrison MD Emergency Medicine Lab Data Radiology Impressions Hand X-Ray 01/10/22 14:46 IMPRESSION: Distal 4th digit injury. See discussion above. Laboratory Results Urine Opiates Screen Negative ng/mL (Negative) 01/10/22 14:29 Ur Barbiturates Screen Negative ng/mL (Negative) 01/10/22 14:29 Ur Phencyclidine Scrn Negative ng/mL (Negative) 01/10/22 14:29 Ur Amphetamines Screen Negative ng/mL (Negative) 01/10/22 14:29 U Benzodiazepines Scrn Negative ng/mL (Negative) 01/10/22 14:29 Urine Cocaine Screen Negative ng/mL (Negative) 01/10/22 14:29 U Marijuana (THC) Screen Negative ng/mL (Negative) 01/10/22 14:29 Discharge Plan Discharge Patient Disposition: Home Clinical Impression: Fracture of distal phalanx of finger Qualifiers: Encounter type: initial encounter Finger: ring finger Fracture type: open Fracture alignment: nondisplaced Laterality: left Qualified Code(s): S62.665B - Nondisplaced fracture of distal phalanx of left ring finger, initial encounter for open fracture Degloving injury of finger Qualifiers: Encounter type: initial encounter Qualified Code(s): S61.209A - Unspecified open wound of unspecified finger without damage to nail, initial encounter Condition: Stable Prescriptions: New cephalexin 500 mg capsule 500 mg PO Q6H 7 Days Qty: 28 0RF ibuprofen 800 mg tablet 800 mg PO Q8H PRN (Reason: pain) Qty: 30 0RF Discharge Orders: Discharge ED (Routine); Ordered 01/10/22 Ordered By: Raji Abraham Discharge Diet: Regular Discharge Activity: Limit activity as instructed Patient Instructions: Opioid Safety Activity Restrictions/Additional Instructions: Follow-up with medical provider as directed. Contact [facility] orthopedic clinic tomorrow morning to make sure you get an appointment set up for January 12. Phone number is [phone]. Keep dressing on until evaluated by Dr. Springer on Saturday. Take medications as prescribed. Return to the ER or your medical provider if condition worsens. Please read and understand discharge instructions. Thank you for choosing [facility] for your healthcare needs today. Please realize this is an emergency room and that we are providing you with a medical screening exam and this may not be complete and all inclusive of all the testing and or work up that you may need to determine your ailment or severity of your illness. It is very important that you follow up as instructed or that you return to the Emergency Department should you have concerns or if your condition changes or worsens in any way. 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
[2022-01-10 15:02] LABS: Amphetamines Screen Urine Negative (Negative); Barbiturates Screen Urine Negative (Negative); Benzodiazepines Screen Urine Negative (Negative); Cocaine Screen Urine Negative (Negative); Opiate Screen Urine Negative (Negative); PCP Screen Urine Negative (Negative); THC Screen Urine Negative (Negative)
[2022-01-10] MEDS: ceFAZolin 2,000 MG in sodium chloride 0.9% (plus) 50 ML 100 MG IV (16:13)
[2022-01-10] MEDS: lidocaine 2% INJ 20 mL 10 ML INJECTION (16:13)
[2022-01-10] MEDS: tetanus-dipt-pertussis 0.5 mL SDV IM (16:20)
[2022-01-10] MEDS: neomycin-poly-bacitracin oint 28 gm 1 APPLIC TOPICAL (16:43)
--- NOTE | 2022-01-11 15:02 | DCPLANNER ---
Addendum entered by Tracie Goodman 01/31/22 14:07: Patient had a follow up appointment scheduled for 01.16.[address] Springer at ortho - patient did attend appointment. Original Note: flight manager had message to schedule a follow up appointment for patient with ortho. flight manager sent patients information to the front office staff at ortho. Patients information will be printed and reviewed. Clinic will call patient with appointment information.
== END 2022-01-10 17:07 | disposition home or self-care (01) ==
PROVIDERS: Emergency Medicine; Emergency Provider Physician Assistant
DX: S62.665B Nondisplaced fracture of distal phalanx of left ring finger, initial encounter for open fracture (principal); F17.210 Nicotine dependence, cigarettes, uncomplicated; W31.9XXA Contact with unspecified machinery, initial encounter; Y99.0 Civilian activity done for income or pay; Z23 Encounter for immunization
CPT/HCPCS: 64450; 73130; 80306; 90471; 90715; 96365; 99284; J0690

== ENCOUNTER → 2022-03-20 10:53 | Outpatient (BNVA) | payer SELFPAY | PROVIDERS: Visit Provider Registered Nurse Neonatal Intensive Care | DX: R50.9 Fever, unspecified (principal); J11.1 Influenza due to unidentified influenza virus with other respiratory manifestations | CPT/HCPCS: 87400 ==

== ENCOUNTER → 2022-04-25 10:47 | Outpatient (BNVA) | payer OTHER, SELFPAY | PROVIDERS: Visit Provider Orthopaedic Surgery | DX: Z89.022 Acquired absence of left finger(s) (principal) | CPT/HCPCS: 73130 ==

== ENCOUNTER → 2022-12-04 10:30 | Outpatient (BNVA) | payer SELFPAY | PROVIDERS: Visit Provider Nurse Practitioner Family | DX: R52 Pain, unspecified (principal); J06.9 Acute upper respiratory infection, unspecified | CPT/HCPCS: 87426 ==

== ENCOUNTER → 2023-03-05 17:21 | Outpatient (BNVA) | payer SELFPAY | PROVIDERS: Visit Provider Registered Nurse Neonatal Intensive Care | DX: R05.9 Cough, unspecified (principal) | CPT/HCPCS: 87400 ==

== ENCOUNTER → 2023-04-05 16:24 | Outpatient (BNVA) | payer SELFPAY | PROVIDERS: Visit Provider Nurse Practitioner Family | DX: R09.81 Nasal congestion (principal); J10.1 Influenza due to other identified influenza virus with other respiratory manifestations | CPT/HCPCS: 87400 ==

== ENCOUNTER → 2023-04-08 10:05 | Outpatient (BNVA) | payer SELFPAY | PROVIDERS: Visit Provider Nurse Practitioner | DX: J02.9 Acute pharyngitis, unspecified (principal); J11.1 Influenza due to unidentified influenza virus with other respiratory manifestations | CPT/HCPCS: 87880 ==

== ENCOUNTER → 2023-05-27 18:50 | Outpatient (BNVA) | payer SELFPAY | PROVIDERS: Visit Provider Registered Nurse Neonatal Intensive Care | DX: R50.9 Fever, unspecified (principal) | CPT/HCPCS: 87400 ==

== ENCOUNTER → 2024-01-20 18:26 | Outpatient (BNVA) | payer SELFPAY | PROVIDERS: Visit Provider Registered Nurse Neonatal Intensive Care | DX: R11.2 Nausea with vomiting, unspecified (principal); R19.7 Diarrhea, unspecified | CPT/HCPCS: 87400; 87426 ==

== ENCOUNTER → 2024-03-25 16:03 | Outpatient (BNVA) | payer SELFPAY | PROVIDERS: Visit Provider Family Medicine | DX: J40 Bronchitis, not specified as acute or chronic (principal); J11.1 Influenza due to unidentified influenza virus with other respiratory manifestations | CPT/HCPCS: 87400 ==

== ENCOUNTER → 2024-12-08 15:39 | Outpatient (BNVA) | payer SELFPAY | DX: H60.333 Swimmer's ear, bilateral (principal); J11.1 Influenza due to unidentified influenza virus with other respiratory manifestations; R51.9 Headache, unspecified | CPT/HCPCS: 87400; 87426 ==

== ENCOUNTER → 2025-01-22 15:15 | Outpatient (BNVA) | payer SELFPAY | PROVIDERS: Visit Provider Emergency Medicine | DX: J06.9 Acute upper respiratory infection, unspecified (principal) | CPT/HCPCS: 87400; 87426 ==

== ENCOUNTER 2025-01-23 16:13 | Emergency (ER) | payer SELFPAY ==
[2025-01-23 16:15] VITALS: BP 127/74; PULSE 84; RESP 18; TEMP 37; O2SAT 96; BMI 41.6
[2025-01-23 16:38] VITALS: BP 113/82; PULSE 90; O2SAT 95
--- NOTE | 2025-01-23 16:46 | W.ED.DENTAL ---
HPI - Dental/Oral General: Chief complaint: Dental/Oral Stated complaint: R side face pain Time Seen by Provider: 01/23/25 16:23 History of Present Illness: Patient is a 44-year-old male with history of influenza B diagnosis yesterday, presents to the ED with dental pain. He describes this on the right side of his mouth with swelling. This occurred today. He is able to fully open his mouth. No fevers. He was going to the dentist today, and fell asleep. Associated symptoms: Reports fever(s); Denies ear or mastoid pain Related Data Previous Rx's ?Medication ?Instructions ?Recorded ibuprofen 800 mg tablet 800 mg PO Q8H PRN pain #30 tabs 01/10/22 ofloxacin 0.3 % ear drops 5 drp otic (ear) BID 7 days #10 mL 12/08/24 oseltamivir 75 mg capsule (Tamiflu) 75 mg PO BID 5 days #10 caps 01/22/25 amoxicillin 500 mg capsule 500 mg PO BID 10 days #20 caps 01/23/25 ketorolac 10 mg tablet 10 mg PO Q8H PRN pain 5 days #14 01/23/25 tabs methocarbamol 750 mg tablet 750 mg PO Q8H PRN muscle spasm #30 01/23/25 tabs Allergies Allergy/AdvReac Type Severity Reaction Status Date / Time promethazine (From Phenergan) AdvReac ADR-Agitate Verified 01/22/25 14:53 d Review of Systems General: Reports: 10 or more systems reviewed and unremarkable except in HPI and below Const: Reports: fever(s), chills, body aches and fatigue ENMT: Reports: dental pain and sinus pain; Denies: ear or mastoid pain, nasal discharge or nasal congestion Card: Denies: chest pain, palpitations or swelling of feet/ankles Resp: Reports: productive cough and wheezing GI: Reports: nausea and diarrhea; Denies: abdominal pain or vomiting : Denies: flank pain Musc: Denies: back pain or extremity swelling Skin/Breast: Denies: rash or pruritus Neuro: Reports: headache(s) Psych: Denies: anxiety or depression PFS ED PFSH: Medical History (Updated 01/23/25 @ 16:53 by NEELA Alexander) No pertinent past medical history Surgical History H/O eye surgery Family History Grandfather CAD (coronary artery disease) Diabetes Father Cancer Brother Cancer Family/Other Cancer breast Sister Diabetes Denies family history of Anesthesia complication Bleeding disorder Social History Smoking and tobacco/nicotine status: current every day tobacco/nicotine user Alcohol intake: current Alcohol intake frequency: holidays/special occasions only Substance/Drug Use: never Household members: significant other Marital status: Single Current occupational status: previously employed Physical Exam Const: COMMON NORMALS: no acute distress and patient oriented x3 GENERAL APPEARANCE: cooperative; not in distress HENMT: COMMON NORMALS: normocephalic and TM's normal bilaterally HEAD & SCALP: normal to inspection and normocephalic TYMPANIC MEMBRANE: TM's normal bilaterally MOUTH: Normal oral and palatal mucosa present and lip normal TEETH & GINGIVA IMAGES:  1. Necrosis, gingival disease 2. Necrosis, gingival disease 3. Necrosis, gingival disease 4. Absent THROAT: posterior oropharynx normal and tonsils normal Neck/C-Spine: COMMON NORMALS: supple and no meningeal signs GENERAL: Yes normal visual inspection and Yes trachea midline Chest: COMMONS NORMALS: normal inspection of the chest Resp: COMMON NORMALS: normal respiratory effort EFFORT & INSPECTION: Yes able to speak in complete sentences and No respiratory distress AUSCULTATION: no rales, no rhonchi and wheezes expiratory wheezes, left lower and left upper Cardio: COMMON NORMALS: regular rate, regular rhythm, S1 normal heart sound present, S2 normal heart sound present and No murmurs present (Cardio) RATE: regular rate RHYTHM: regular rhythm HEART SOUNDS: S1 normal heart sound present and S2 normal heart sound present Extremity: COMMON NORMALS: normal to inspection, capillary refill normal and no pedal edema Neuro: COMMON NORMALS: patient oriented x3, moves all extremities and no focal motor deficits MENINGEAL SIGNS: Yes no meningeal signs Skin: COMMON NORMALS: no rashes or lesions noted GENERAL SKIN EXAM: no rashes or lesions noted Course Vital Signs: Vital signs: Vital Signs Temperature 98.6 F 01/23/25 16:15 Pulse Rate 90 01/23/25 16:38 Respiratory Rate 18 11/15/25 16:15 Blood Pressure 113/82 01/23/25 16:38 Pulse Oximetry 95 01/23/25 16:38 Oxygen Delivery Me thod Room Air 01/23/25 16:38 MDM - Dental/Oral Medical Decision Making Patient presents with right-sided lower jaw pain and swelling. He does not have trismus. No red flags. He is asking for pain medication. Narcotics are not indicated at this time. Will give amoxicillin x 1 g, sent to the pharmacy, give Toradol, Norflex x 1. Patient is satisfied with this. Medical Records I reviewed the patient's medical records. No radiology studies performed this visit Discharge Plan Discharge Patient Disposition: Home Clinical Impression: Dental caries Condition: Stable Prescriptions: New ketorolac 10 mg tablet 10 mg PO Q8H PRN (Reason: pain) 5 Days Qty: 14 0RF methocarbamol 750 mg tablet 750 mg PO Q8H PRN (Reason: muscle spasm) Qty: 30 0RF amoxicillin 500 mg capsule 500 mg PO BID 10 Days Qty: 20 0RF No Action ofloxacin 0.3 % drops 5 drp otic (ear) BID 7 Days Qty: 10 1RF ipratropium-albuterol 0.5 mg-3 mg(2.5 mg base)/3 mL solution for nebulization 3 ml inhalation ONCE Qty: 1 0RF oseltamivir [Tamiflu] 75 mg capsule 75 mg PO BID 5 Days Qty: 10 0RF ibuprofen 800 mg tablet 800 mg PO Q8H PRN (Reason: pain) Qty: 30 0RF Discharge Orders: Discharge ED (Routine); Ordered 01/23/25 Ordered By: Berta Doty Discharge Diet: As Directed Discharge Activity: Resume usual activity Patient Instructions: Dental Caries (Cavities), Patient Portal & Darrell Instructions Activity Restrictions/Additional Instructions: - We do not have dental care out of the ER. - Please contact your dentist on Saturday to make an appointment - Take your antibiotics as prescribed. They have been sent to the [facility]. Utilize probiotic daily or eat active culture yogurt to avoid infectious diarrhea -Soft foods only - Return to ED if you cannot open your mouth, fever greater than 100.4 ?F or have formation of an abscess. Thank you [facility] today. You have been screened and evaluated and felt safe for discharge. Health conditions do change or evolve sometimes and as such it is important that you follow up with your Primary Doctor to be re checked, 3-5 days is a general good time frame for follow up. You are always welcome to return to the ED for re assessment if your symptoms are worsening or you have new concerns Print Language: Citizen Of [place] Coding Level of Care Code ED Emergency Medicine Medical Director for Carl[facility] Beyer
[2025-01-23] MEDS: orphenadrine 30 mg/mL Inj 2 mL 60 MG IM (16:56)
== END 2025-01-23 17:12 | disposition home or self-care (01) ==
PROVIDERS: Emergency Provider Physician Assistant
DX: K02.9 Dental caries, unspecified (principal); Z72.0 Tobacco use
CPT/HCPCS: 96372; 99284; J1885; J2360; J9999

== ENCOUNTER 2025-02-25 06:11 | Emergency (ER) | payer SELFPAY ==
[2025-02-25 06:23] VITALS: BP 103/79; PULSE 79; RESP 18; TEMP 36.8; O2SAT 95; BMI 41.6
--- NOTE | 2025-02-25 06:27 | ED_ITS ---
HPI - General Adult General: Chief complaint: Ear Stated complaint: Both Ear Pain going down to mouth Time Seen by Provider: 02/25/25 06:23 History of Present Illness: 44-year-old male who presents to the [facility] room with complaints of bilateral ear pain his right ear is bothering him more than the left. He has not had any drainage from the area she describes the pain as 10 out of 10. He has known dental issues he has not been able to get into see a dentist he has some jaw pain particularly in his right mandibular area. Associated symptoms: Deny chest pain, dyspnea or rash Related Data Previous Rx's ?Medication ?Instructions ?Recorded ibuprofen 800 mg tablet 800 mg PO Q8H PRN pain #30 t abs 01/10/22 ofloxacin 0.3 % ear drops 5 drp otic (ear) BID 7 days #10 mL 12/08/24 oseltamivir 75 mg capsule (Tamiflu) 75 mg PO BID 5 day s #10 caps 01/22/25 methocarbamol 750 mg tablet 750 mg PO Q8H PRN muscle s pasm #30 01/23/25 tabs amoxicillin 875 mg-potassium 1 tab PO BID #20 tabs clavulanate 125 mg tablet diclofenac sodium 75 mg 75 mg PO Q12H PRN pain #20 t abs 02/25/25 tablet,delayed release Allergies Allergy/AdvReac Type Severity Reaction Status Date / Time promethazine (From Phenergan) AdvReac ADR-Agitate Verified 02/25/25 06:27 d Review of Systems Const: Denies: fever(s) or chills Card: Denies: chest pain Resp: Denies: dyspnea GI: Denies: abdominal pain : Denies: dysuria, urinary frequency or urinary urgency Musc: Denies: neck pain or back pain Skin/Breast: Denies: rash PFSH ED PFSH: Medical History No pertinent past medical history Surgical History H/O eye surgery Family History Grandfather CAD (coronary artery disease) Diabetes Father Cancer Brother Cancer Family/Other Cancer breast Sister Diabetes Denies family history of Anesthesia complication Bleeding disorder Social History Smoking and tobacco/nicotine status: current every day tobacco/nicotine user Alcohol intake: current Alcohol intake frequency: holidays/special occasions only Substance/Drug Use: never Household members: significant other Marital status: Single Current occupational status: previously employed Physical Exam Const: GENERAL APPEARANCE: cooperative ORIENTATION/CONSCIOUSNESS: Yes awake, Yes oriented to person, Yes oriented to place and Yes oriented to time HENMT: COMMON NORMALS: normocephalic, atraumatic, hearing grossly normal bilaterally, external ears normal, EAC's normal, TM's normal bilaterally and Normal nasal mucous membranes and turbinates present HEAD & SCALP: normocephalic and atraumatic NOSE: Normal nasal mucous membranes and turbinates present EXTERNAL EAR: Yes external ears normal EXTERNAL AUDITORY CANAL: EAC's normal TYMPANIC MEMBRANE: TM's normal bilaterally OTHER: Multiple eroded teeth tenderness along the left maxillary gumline no abscess no drainage Resp: COMMON NORMALS: normal respiratory effort, No retractions, No use of accessory muscles and clear to auscultation bilaterally AUSCULTATION: clear to auscultation bilaterally Cardio: COMMON NORMALS: regular rate, regular rhythm and No murmurs present (Cardio) RATE: regular rate RHYTHM: regular rhythm GI: COMMON NORMALS: Soft to palpation and No hepatosplenomegaly present AUSCULTATION: Yes normoactive bowel sounds PALPATION: Yes Soft to palpation, No Tenderness to palpation present (GI), No Guarding due to palpation present (GI) and Yes No hepatosplenomegaly present Extremity: COMMON NORMALS: normal to inspection, capillary refill normal, no clubbing, cyanosis or edema, no calf tenderness and no pedal edema Neuro: SENSORIUM/ORIENTATION: Yes oriented to person, Yes oriented to place and Yes oriented to time Skin: COMMON NORMALS: no rashes or lesions noted GENERAL SKIN EXAM: no rashes or lesions noted Course Vital Signs: Vital signs: Vital Signs Temperature 98.2 F 02/25/25 06:23 Pulse Rate 78 02/25/25 07:08 Respiratory Rate 18 02/25/25 06:23 Blood Pressure 134/89 02/25/25 07:08 Pulse Oximetry 98 02/25/25 07:08 Oxygen Delivery Me thod Room Air 02/25/25 06:23 MDM - General Adult Medical Decision Making Medical decision making Social determinants: Limited access to the dental care due to finances. I reviewed the patient's medical record. I reviewed the patient's current home meds. Alternate historians: None Differential diagnosis: Dental abscesses pain from dental caries otitis media otitis externa Lab Review: None Imaging: None Assessment of risk Level of risk: Low Hospitalization considerations: No indication for hospitalization Reexamination: Unchanged Assessment and plan: Patient having pain from dental caries there is no sign of abscess at this time he has no cervical lymphadenopathy there is certainly no submandibular swelling fullness or tenderness at this time. Examination of his ear shows no sign of infection of the middle ear or the external ear.. Think his pain is likely due to referred pain from his dental issues will discharge home on Augmentin pain medications discussed with the patient 1 option would be to pursue dental assistance at [facility] as they have a sliding scale for dental services there. No radiology studies performed this visit Discharge Plan Discharge Patient Disposition: Home Clinical Impression: Pain due to dental caries Condition: Stable Prescriptions: New diclofenac sodium 75 mg tablet,delayed release (DR/EC) 75 mg PO Q12H PRN (Reason: pain) Qty: 20 0RF amoxicillin-pot clavulanate 875-125 mg tablet 1 tab PO BID Qty: 20 0RF No Action ofloxacin 0.3 % drops 5 drp otic (ear) BID 7 Days Qty: 10 1RF ipratropium-albuterol 0.5 mg-3 mg(2.5 mg base)/3 mL solution for nebulization 3 ml inhalation ONCE Qty: 1 0RF oseltamivir [Tamiflu] 75 mg capsule 75 mg PO BID 5 Days Qty: 10 0RF methocarbamol 750 mg tablet 750 mg PO Q8H PRN (Reason: muscle spasm) Qty: 30 0RF ibuprofen 800 mg tablet 800 mg PO Q8H PRN (Reason: pain) Qty: 30 0RF Discharge Orders: Discharge ED (Routine); Ordered 02/25/25 Ordered By: Brandt Garsia Patient Instructions: Opioid Safety, Pain Management, Patient Portal & Darrell Instructions Activity Restrictions/Additional Instructions: Thank you for choosing [facility] for your healthcare needs today. It is very important that you follow up as instructed or that you return to the Emergency Department should you have concerns or if your condition changes or worsens in any way. Emergency department visits are focused on emergent conditions, in some cases you may require further evaluation on an outpatient basis. You are seen in the emergency room with complaint of ear pain and jaw pain. On exam there is no significant abnormalities in your ears and believes the discomfort you are experiencing is referred pain from your dental issues. Will start you on Augmentin 1 tablet twice a day for 10 days also gave you diclofenac to use for pain. Recommend you follow-up with a dentist as soon as you are a ble for definitive care. (Please note that included in your discharge packet is information concerning opioid safety and pain management. This information is given to all patients were discharged from the ER regardless of their discharge diagnosis or the medicines they usually take or are prescribed.) Stand Alone Forms: Work/School Release Print Language: [place] Coding Level of Care Code ED Field Marketing Manager for Carlton Beyer
[2025-02-25 06:41] VITALS: BP 103/79; PULSE 78; O2SAT 93
[2025-02-25 07:08] VITALS: BP 134/89; PULSE 78; O2SAT 98
== END 2025-02-25 07:11 | disposition home or self-care (01) ==
PROVIDERS: Emergency Provider Family Medicine
DX: K02.9 Dental caries, unspecified (principal); Z72.0 Tobacco use
CPT/HCPCS: 99283